=== PATIENT | male | born 1950 | race Caucasian/White ===

== ENCOUNTER 2017-06-29 11:42 | Inpatient (IN) | payer MEDICARE, BC ==
[~2017-06-29] VITALS: Ht 182.9 cm; Wt 97.3 kg
[~2017-06-29 11:42] MED LIST: ALLOPURINOL100 MG PO; ASPIRIN81 MG PO; ATORVASTATIN CA40 MG PO; CLOPIDOGREL75 MG PO; FISH OIL 1,2001 EACH PO; FUROSEMIDE40 MG PO; HYDROCHLOROTHIA25 MG PO; LANTUS 3ML100 UNITS/ SQ; LISINOPRIL10 MG PO; NORCO 5-325 TA1 EACH PO; OMEPRAZOLE40 MG PO; SOMA350 MG PO; VERAPAMIL ER120 MG PO; ZYRTEC10 MG PO
--- OUTSIDE RECORDS SUMMARY | 2017-06-29 11:46 | XMS REPORT ---
Author Author [facility] Address Unknown Phone Unavailable Care Team Providers Care Raised Printer Name Role Phone Unavailable Unavailable Problems This patient has no known problems. Allergies, Adverse Reactions, Alerts This patient has no known allergies or adverse reactions. Medications This patient has no known medications. Encounters Start Date/Time End Date/Time Encounter Type Admission Type Attending Clinicians Care Facility Care Department Encounter ID 2017-06-17 00:00:00 2017-06-25 00:00:00 [facility] [id number]
[2017-06-29] MEDS ORDERED: METHYLPREDNISOLONE SOD SUCC 125 MG/2ML VIAL IV STA (12:38)
[2017-06-29] MEDS ORDERED: ALBUTEROL/IPRATROPIUM 3 ML NEB NEB ONE (12:45)
--- NOTE | 2017-06-29 13:50 | Diagnostic Imaging Report ---
PROCEDURE: Frontal and lateral views of the chest. COMPARISON: None. INDICATIONS: COUGH, PNEUMONIA FINDINGS: Lines/tubes: None. Lungs: The lungs are mildly hypoinflated. Mild patchy density in the lung base posteriorly may reflect atelectasis versus developing pneumonia in the proper clinical setting. No focal consolidation. Pleura: There is no pleural effusion or pneumothorax. Heart and mediastinum: The cardiac silhouette is mildly enlarged. Median sternotomy wires. Bones: No acute bony abnormality. IMPRESSION: 1. Mild patchy density in the lung base posteriorly may reflect atelectasis versus developing pneumonia in the proper clinical setting. No focal consolidation. Rafa Foote M.D. Dictated by: Rafa Foote M.D. on 06/29/2017 at 14:00 Electronically approved by: Rafa Foote M.D. on 06/29/2017 at 14:00
[2017-06-29 16:22] LABS: BASOPHILS % 0.4 % (0.0-1.0); EOSINOPHILS # (AUTO) 0.1 (0.0-0.4); EOSINOPHILS % 0.9 % (0.0-6.0); HEMATOCRIT 42.1 % (38.2-49.6); HEMOGLOBIN 13.9 g/dL (14.0-18.0); LYMPHOCYTES # (AUTO) 0.7 (1.0-3.2); LYMPHOCYTES % 9.7 % (18.0-39.1); MEAN CORPUSCULAR HEMOGLOBIN 28.4 pg (28-32); MEAN CORPUSCULAR VOLUME 85.9 fL (81-99); MONOCYTES # (AUTO) 0.8 (0.2-0.8); MONOCYTES % 10.6 % (4.4-11.3); NEUTROPHILS # (AUTO) 5.9 (2.1-6.9); NEUTROPHILS % 78.1 % (38.7-80.0); PLATELET COUNT 204 x10e3/uL (140-360); RED CELL DISTRIBUTION WIDTH 12.9 % (11.7-14.4)
[2017-06-29 16:40] LABS: ALBUMIN 3.4 g/dL (3.5-5.0); ALBUMIN/GLOBULIN RATIO 0.7 (0.8-2.0); ANION GAP 15.1 mmol/L (8-16); CALCIUM 9.6 mg/dL (8.4-10.2); CREATININE, SERUM 1.41 mg/dL (0.72-1.25); POTASSIUM 4.1 mmol/L (3.5-5.1)
[2017-06-29] MEDS ORDERED: AZITHROMYCIN 500MG/SOD CHL 0.9% 250ML BAG IV SCH (19:15)
[2017-06-29] MEDS ORDERED: DEXTROSE 50% SYRINGE 50 ML IV PRN (19:15)
[2017-06-29] MEDS ORDERED: CEFTRIAXONE SOD 1 GM VIAL IV SCH (19:15)
[2017-06-29] MEDS ORDERED: AZITHROMYCIN 500MG/NS 250 ML 250 ML IV SCH (19:30)
[2017-06-29] MEDS ORDERED: IPRATROPIUM BROMIDE 0.02% 2.5 ML NEB NEB SCH (19:30)
[2017-06-29] MEDS ORDERED: AZITHROMYCIN 500MG/NS 250 ML 250 ML ONE (20:53)
[2017-06-29] MEDS ORDERED: METHYLPREDNISOLONE SOD SUCC 125 MG/2ML VIAL ONE (20:53)
[2017-06-29] MEDS ORDERED: CEFTRIAXONE SOD 1 GM VIAL ONE (20:53)
[2017-06-29] MEDS ORDERED: ATORVASTATIN CA20 MG PO (21:09)
[2017-06-29] MEDS ORDERED: LISINOPRIL-HCT1 EACH PO (21:10)
[2017-06-29] MEDS ORDERED: OMEPRAZOLE40 MG PO (21:11)
[2017-06-29] MEDS ORDERED: METOPROLOL TART25 MG PO (21:11)
[2017-06-29] MEDS ORDERED: CLOPIDOGREL75 MG PO (21:12)
[2017-06-29] MEDS ORDERED: VERAPAMIL HCL40 MG PO (21:12)
[2017-06-29] MEDS ORDERED: ACETAMINOPHEN 325 MG TAB PO PRN (21:30)
[2017-06-29] MEDS ORDERED: LOPERAMIDE HCL 2 MG CAP ONE (21:31)
[2017-06-29] MEDS ORDERED: METHYLPREDNISOLONE SOD SUCC 40 MG/ML VIAL IV SCH (22:00)
[2017-06-29] MEDS ORDERED: INSULIN REGULAR, HUMAN 100 UNIT/1 ML 3ML VIAL ONE (22:03)
[2017-06-29] MEDS ORDERED: SODIUM CHLORIDE 0.9% 1000ML 1,000 ML ONE (22:04)
[2017-06-29] MEDS: INSULIN REGULAR, HUMAN 100 UNIT/1 ML 3ML VIAL SQ SCH (22:05)
[2017-06-29] MEDS: SODIUM CHLORIDE 0.9% 1000ML 1,000 ML IV SCH (22:45)
[2017-06-29 22:46] VITALS: BP 142/65
[2017-06-29 22:47] VITALS: BP 142/65
[2017-06-29 22:52] VITALS: BP 142/65
[2017-06-30] VITALS (7 sets, daily range): BP systolic 116–189; BP diastolic 55–90
[2017-06-30] MEDS ORDERED: ALBUTEROL SULF 0.083% NEB SOLN 3 ML NEB ONE (00:34)
[2017-06-30] MEDS: ALBUTEROL SULF 0.083% NEB SOLN 3 ML NEB NEB SCH ×2 (00:35→19:30)
[2017-06-30] MEDS ORDERED: IPRATROPIUM BROMIDE 0.02% 2.5 ML NEB ONE (00:35)
[2017-06-30 00:37] LABS: BILIRUBIN,URINE NEGATIVE (NEGATIVE); KETONES,URINE TRACE (NEGATIVE); LEUKOCYTE ESTERASE ,URINE NEGATIVE (NEGATIVE); NITRITE,URINE NEGATIVE (NEGATIVE); PROTEIN,URINE DIPSTICK 3+ (NEGATIVE); URINE UROBILINOGEN 1 mg/dL (0.2 - 1)
[2017-06-30 00:38] LABS: CLARITY,URINE CLEAR (CLEAR); COLOR,URINE YELLOW (YELLOW)
[2017-06-30 00:49] LABS: BACTERIA,URINE FEW /HPF; EPITHELIAL CELLS,URINE RARE /LPF; RBC,URINE 0-5 /HPF (0-5); WBC,URINE (MAN) 0-5 /HPF (0-5)
[2017-06-30] MEDS: IPRATROPIUM BROMIDE 0.02% 2.5 ML NEB NEB SCH ×2 (01:00→19:30)
[2017-06-30 01:01] LABS: CREATINE KINASE MB 2.4 ng/mL (0.00-5.00)
[2017-06-30] MEDS: SODIUM CHLORIDE 0.9% 1000ML 1,000 ML IV SCH ×2 (05:01→14:09)
[2017-06-30] MEDS ORDERED: METHYLPREDNISOLONE SOD SUCC 40 MG/ML VIAL IV SCH (06:00)
[2017-06-30 06:47] LABS: BASOPHILS % 0.1 % (0.0-1.0); HEMOGLOBIN 12.2 g/dL (14.0-18.0); LYMPHOCYTES # (AUTO) 0.4 (1.0-3.2); LYMPHOCYTES % 5.6 % (18.0-39.1); MEAN CORPUSCULAR HEMOGLOBIN 28.4 pg (28-32); MEAN CORPUSCULAR VOLUME 86.2 fL (81-99); MONOCYTES # (AUTO) 0.1 (0.2-0.8); MONOCYTES % 1.2 % (4.4-11.3); NEUTROPHILS # (AUTO) 6.4 (2.1-6.9); PLATELET COUNT 175 x10e3/uL (140-360); RED BLOOD COUNT 4.29 x10e6/uL (4.3-5.7); RED CELL DISTRIBUTION WIDTH 12.7 % (11.7-14.4)
[2017-06-30 07:17] LABS: ANION GAP 16.8 mmol/L (8-16); CALCIUM 8.7 mg/dL (8.4-10.2); CREATININE, SERUM 1.59 mg/dL (0.72-1.25); POTASSIUM 4.8 mmol/L (3.5-5.1)
--- NOTE | 2017-06-30 07:20 | Diagnostic Imaging Report ---
PROCEDURE: CHEST SINGLE (PORTABLE) COMPARISON: Patients [facility], DX, CHEST 2 VIEWS, 06/29/2017, 13:13. INDICATIONS: SHORTNESS OF BREATH. PNEUMONIA FINDINGS: LUNGS: No edema. Scarring vs atelectasis in the left lower lateral lung field. PLEURA: No effusions or pneumothorax. HEART \T\ MEDIASTINUM: The heart is within normal size-limits. Sternotomy wire sutures and mediastinal clips. BONES \T\ SOFT TISSUES: No acute findings. Degenerative changes of the spine. CONCLUSION: No acute thoracic abnormality. Anthony Baptiste D.O. Dictated by: Anthony Baptiste D.O. on 06/30/2017 at 7:29 Electronically approved by: Anthony Baptiste D.O. on 06/30/2017 at 7:29
[2017-06-30 07:50] LABS: LYMPHOCYTES % (MANUAL) 4 % (19-48); MONOCYTES % (MANUAL) 1 % (3.4-9.0); NEUTROPHILS % (MANUAL) 95 % (40-74)
[2017-06-30 07:51] LABS: ANISOCYTOSIS SLIGHT; ELLIPTOCYTE, RBC SLIGHT; PLATELET ESTIMATE ADEQUATE; PLATELET MORPHOLOGY COMMENT FEW LARGE; RBC MORPHOLOGY COMMENT NORMAL
[2017-06-30 08:17] LABS: CREATINE KINASE MB 2.6 ng/mL (0.00-5.00)
[2017-06-30] MEDS ORDERED: NON-FORMULARY MEDICATION (Verapamil Hcl 40 MG) PO SCH (09:00)
[2017-06-30] MEDS: HYDROCHLOROTHIAZIDE 25 MG TAB PO SCH ×2 (10:26→17:18)
[2017-06-30] MEDS: LISINOPRIL 20 MG TAB PO SCH ×2 (10:26→17:19)
[2017-06-30] MEDS: METOPROLOL TARTRATE 25 MG TAB PO SCH ×2 (10:27→17:19)
[2017-06-30] MEDS: CLOPIDOGREL BISULFATE 75 MG TAB PO SCH (10:28)
[2017-06-30] MEDS: PANTOPRAZOLE SOD 40 MG TABEC PO SCH (10:28)
[2017-06-30] MEDS: VERAPAMIL HCL 80 MG TAB PO SCH ×2 (10:28→17:18)
[2017-06-30] MEDS: INSULIN DETEMIR 100 UNIT/ML PEN SQ SCH ×2 (10:34→17:29)
[2017-06-30] MEDS: INSULIN REGULAR, HUMAN 100 UNIT/1 ML 3ML VIAL SQ SCH ×4 (10:38→21:45)
--- NOTE | 2017-06-30 11:11 | History and Physical ---
A 67-year-old male comes in with a history of cough, congestion, dyspnea, which got worse in the last 4-5 days. Today, on admission the patient was really hypoxic and came in, and was found to have pneumonia, and admitted for pneumonia. PAST MEDICAL HISTORY: History of hypertension, history of congestive heart failure, history of coronary disease, history of chronic renal failure, history of uncontrolled diabetes mellitus, history of neuropathy, and severe peripheral arterial disease. MEDICATIONS 1. Atorvastatin 20 mg. 2. 75 mg. 3. Lisinopril 20 mg. 4. Metoprolol 25 mg twice a day. 5. Omeprazole 40 mg daily. 6. Verapamil 40 mg twice a day. ALLERGIES: NKDA. SOCIAL HISTORY: History of smoking in the past. Currently, he is not a smoker. Positive for some occasional drinking. No IV drug abuse as per the patient. PHYSICAL EXAMINATION GENERAL: The patient is alert and oriented times 3. VITAL SIGNS: Temperature is 98, pulse 65, respiratory rate 16, blood pressure 116/55, pulse ox 91% right now. HEENT: Normocephalic and atraumatic. Patient is edentulous and does not have dentures at this time. LUNGS: Positive for rhonchi bilaterally. ABDOMEN: Nontender and nondistended. HEART: S1 and S2 normal. Regular rate and rhythm. EXTREMITIES: Pedal pulses very poor. Trophic changes of diabetes seen. LABORATORY VALUES: Initially, white count was 7.6, hemoglobin 13.9 and hematocrit 42. Chemistry showed sodium of 139, BUN 26 and creatinine of 1.4. Creatinine kinase was 285. There is no troponin leak. BNP was 605. Imaging shows mild patchy density in the lung bases reflecting atelectasis versus pneumonia. ASSESSMENT 1. Pneumonia. 2. History of congestive heart failure with elevated BNP. 3. Coronary artery disease. 4. Uncontrolled diabetes with neuropathy and vasculopathy. PLAN: Continue his home medications. Put him on Lantus and start him back on his Plavix and statin. The patient is currently on Rocephin and azithromycin. Will continue the same. Will hold back on the methylprednisolone secondary to his uncontrolled diabetes mellitus. Breathing treatments every 6 hours. Further recommendations per clinical course. Will continue monitoring the patient. Job#: [id number] RI
--- NOTE | 2017-06-30 16:31 | Consultation ---
DATE OF CONSULTATION: June 30, 2017 REASON FOR CONSULTATION: Dyspnea. HISTORY OF PRESENT ILLNESS: This is a 67-year-old male with history of coronary artery disease, status post redo CABG, diabetes mellitus, hypertension, hyperlipidemia, and chronic kidney disease who presented with complaints of dyspnea. The patient reports that he has been short of breath for the last 5-6 months with dyspnea on exertion approximately 5-15 feet. However, he notes that his dyspnea has been worse these last 2-5 months. In addition, he has developed a cough in the last 2 weeks productive of green phlegm in the last week. He denies any chest pain, orthopnea, PND, fever or chills. On evaluation in the ER, chest x-ray was suggestive of pneumonia in the left lung base for which he was admitted for further evaluation. Cardiology is consulted for evaluation of his dyspnea, given his cardiac history. REVIEW OF SYSTEMS: Negative except as per HPI. PAST MEDICAL HISTORY: 1. Coronary artery disease, status post redo CABG. 2. Diabetes mellitus. 3. Hypertension. 4. Hyperlipidemia. 5. Chronic kidney disease. PAST SURGICAL HISTORY: 1. CABG. 2. Knee surgery. SOCIAL HISTORY: He quit smoking 40 years ago, but previously smoked 2 packs a day for 15 years. No alcohol or illicit drugs. FAMILY HISTORY: Pertinent for grandmother who of myocardial infarction. ALLERGIES: PLEASE SEE EMR . MEDICATIONS: Please see medication list. PHYSICAL EXAMINATION VITAL SIGNS: Temperature 97.9 degrees, pulse 85, respiratory rate 19, blood pressure 175/74, oxygen saturation 96% on room air. GENERAL: An obese gentleman in no acute distress. Well-nourished, well-developed. HEENT: Normocephalic, atraumatic. Pupils are equal. No scleral icterus. NECK: Supple. No thyromegaly or cervical lymphadenopathy. No carotid bruits. LUNGS: Clear to auscultation bilaterally. No wheezes or crackles. CARDIOVASCULAR: Normal rate, regular rhythm. No murmurs. Normal S1 and S2. ABDOMEN: Soft and nontender. EXTREMITIES: No edema. NEUROLOGIC: Nonfocal exam. WBC 6.84, hemoglobin 12.2, hematocrit 37, platelets 175,000. Sodium 134, potassium 4.8, chloride 105, CO2 of 17, BUN 31, creatinine 1.59, BNP 606. Troponin 0.019. EKG sinus rhythm with premature atrial complexes. Septal infarct, age undetermined. IMPRESSION 1. Phypx-dz-pkiodwq systolic heart failure. 2. Pneumonia. 3. Coronary artery disease, status post redo coronary artery bypass graft. 4. Hypertension. 5. Hyperlipidemia. 6. 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 7. Chronic kidney disease. RECOMMENDATIONS: Stop fluids. Start the patient on diuretics as blood pressure is stable. Continue home cardiac medications otherwise. Thank you for this consult. We will continue to follow. Job#: [id number]
[2017-06-30] MEDS: FUROSEMIDE INJ 10 MG/ML 4 ML VIAL IV SCH ×2 (17:18→21:37)
[2017-06-30] MEDS: METHYLPREDNISOLONE SOD SUCC 40 MG/ML VIAL IV SCH (17:32)
[2017-06-30] MEDS ORDERED: ATORVASTATIN 20 MG TAB PO SCH (21:00)
[2017-06-30] MEDS: CEFTRIAXONE SOD 1 GM VIAL IV SCH (21:40)
[2017-06-30] MEDS: AZITHROMYCIN 500MG/NS 250 ML 250 ML IV SCH (22:07)
[2017-07-01] MEDS: ALBUTEROL SULF 0.083% NEB SOLN 3 ML NEB NEB SCH ×7 (00:08→23:00)
[2017-07-01] MEDS: IPRATROPIUM BROMIDE 0.02% 2.5 ML NEB NEB SCH ×4 (00:08→19:00)
[2017-07-01 01:56] VITALS: BP 174/79
[2017-07-01] MEDS: METHYLPREDNISOLONE SOD SUCC 40 MG/ML VIAL IV SCH ×2 (05:29→18:00)
[2017-07-01 06:07] VITALS: BP 113/53
[2017-07-01 07:11] LABS: BASOPHILS % 0.1 % (0.0-1.0); HEMOGLOBIN 11.7 g/dL (14.0-18.0); LYMPHOCYTES # (AUTO) 0.8 (1.0-3.2); LYMPHOCYTES % 6.9 % (18.0-39.1); MEAN CORPUSCULAR HEMOGLOBIN 28.2 pg (28-32); MEAN CORPUSCULAR HGB CONC 32.5 g/dL (31-35); MEAN CORPUSCULAR VOLUME 86.7 fL (81-99); MONOCYTES # (AUTO) 0.7 (0.2-0.8); MONOCYTES % 6.5 % (4.4-11.3); NEUTROPHILS # (AUTO) 9.8 (2.1-6.9); NEUTROPHILS % 86.1 % (38.7-80.0); PLATELET COUNT 190 x10e3/uL (140-360); RED BLOOD COUNT 4.15 x10e6/uL (4.3-5.7); RED CELL DISTRIBUTION WIDTH 12.8 % (11.7-14.4)
[2017-07-01 07:27] LABS: ANION GAP 12.8 mmol/L (8-16); CALCIUM 8.9 mg/dL (8.4-10.2); CREATININE, SERUM 1.56 mg/dL (0.72-1.25); POTASSIUM 4.8 mmol/L (3.5-5.1)
[2017-07-01] MEDS: INSULIN REGULAR, HUMAN 100 UNIT/1 ML 3ML VIAL SQ SCH ×4 (08:00→20:59)
[2017-07-01 08:17] VITALS: BP 180/82
[2017-07-01] MEDS: CLOPIDOGREL BISULFATE 75 MG TAB PO SCH (09:00)
[2017-07-01] MEDS: PANTOPRAZOLE SOD 40 MG TABEC PO SCH (09:00)
[2017-07-01] MEDS: LISINOPRIL 20 MG TAB PO SCH ×2 (09:00→17:00)
[2017-07-01] MEDS: HYDROCHLOROTHIAZIDE 25 MG TAB PO SCH ×2 (09:00→17:00)
[2017-07-01] MEDS: FUROSEMIDE INJ 10 MG/ML 4 ML VIAL IV SCH ×3 (09:00→20:13)
[2017-07-01] MEDS: VERAPAMIL HCL 80 MG TAB PO SCH ×2 (09:00→17:00)
[2017-07-01] MEDS: METOPROLOL TARTRATE 25 MG TAB PO SCH ×2 (09:00→17:00)
[2017-07-01] MEDS: INSULIN DETEMIR 100 UNIT/ML PEN SQ SCH ×2 (09:00→17:00)
--- NOTE | 2017-07-01 10:21 | Progress Note ---
DATE: July 01, 2017 CARDIOLOGY PROGRESS NOTE SUBJECTIVE: Patient denies chest pain. He reports his shortness of breath is better, but he still cannot ambulate from his room to the nurse's station without stopping to catch his breath. In addition, he reports that he is having urinary hesitancy and weak stream. OBJECTIVE VITALS: Temperature 96.3 degrees, pulse 64, respiratory rate 20, blood pressure 180/82, oxygen saturation 98%. GENERAL: Obese gentleman in no acute distress. Awake and alert. LUNGS: Clear to auscultation bilaterally. No wheezes or crackles. CARDIOVASCULAR: Normal rate and regular rhythm. No murmur. Normal S1 and S2. ABDOMEN: Soft and nontender. EXTREMITIES: Trace edema. CARDIAC MEDICATIONS 1. Furosemide 40 mg IV t.i.d. 2. Atorvastatin 40 mg p.o. at bedtime. 3. Lisinopril 20 mg p.o. b.i.d. 4. Metoprolol tartrate 37.5 mg p.o. b.i.d. 5. Verapamil 40 mg p.o. b.i.d. 6. Hydrochlorothiazide 12.5 mg p.o. b.i.d. 7. Plavix 75 mg p.o. daily. LABS: WBC 11.39, hemoglobin 11.7, hematocrit 36, and platelets 190,000. Sodium 136, potassium 4.8, chloride 104, CO2 24, BUN 45, creatinine 1.56. IMPRESSION 1. Lyuwm-rs-naeiird systolic heart failure. 2. Pneumonia. 3. Coronary artery disease: Status post redo coronary artery bypass. 4. Hypertension. 5. Hyperlipidemia. 6. 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 7. Chronic kidney disease. RECOMMENDATIONS: Continue current cardiac medications, including intravenous diuresis. Monitor creatinine and replete electrolytes. Given the patient's complaints, will also start the patient on tamsulosin. Thank you for this consult. We will continue to follow. Job#: [id number] MARK
[2017-07-01] MEDS: DOXAZOSIN MESYLATE 2 MG TAB PO SCH (11:10)
[2017-07-01 11:35] VITALS: BP 180/78
[2017-07-01 16:01] VITALS: BP 190/92
[2017-07-01 20:00] VITALS: BP 189/81
[2017-07-01] MEDS: CEFTRIAXONE SOD 1 GM VIAL IV SCH (20:12)
[2017-07-01] MEDS ORDERED: ATORVASTATIN 40 MG TAB PO SCH (21:00)
[2017-07-01] MEDS: AZITHROMYCIN 500MG/NS 250 ML 250 ML IV SCH (21:08)
[2017-07-02] VITALS (8 sets, daily range): BP systolic 135–201; BP diastolic 61–90
[2017-07-02] MEDS: IPRATROPIUM BROMIDE 0.02% 2.5 ML NEB NEB SCH ×3 (01:40→13:00)
[2017-07-02] MEDS: ALBUTEROL SULF 0.083% NEB SOLN 3 ML NEB NEB SCH ×3 (02:53→13:00)
[2017-07-02] MEDS: METHYLPREDNISOLONE SOD SUCC 40 MG/ML VIAL IV SCH (05:45)
[2017-07-02 07:25] LABS: BASOPHILS % 0.1 % (0.0-1.0); HEMATOCRIT 35.4 % (38.2-49.6); HEMOGLOBIN 11.8 g/dL (14.0-18.0); LYMPHOCYTES # (AUTO) 1.1 (1.0-3.2); MEAN CORPUSCULAR HGB CONC 33.3 g/dL (31-35); MEAN CORPUSCULAR VOLUME 84.1 fL (81-99); MONOCYTES # (AUTO) 0.5 (0.2-0.8); MONOCYTES % 4.1 % (4.4-11.3); NEUTROPHILS # (AUTO) 10.1 (2.1-6.9); NEUTROPHILS % 86.4 % (38.7-80.0); PLATELET COUNT 206 x10e3/uL (140-360); RED BLOOD COUNT 4.21 x10e6/uL (4.3-5.7); RED CELL DISTRIBUTION WIDTH 12.7 % (11.7-14.4)
[2017-07-02 07:44] LABS: ANION GAP 14.3 mmol/L (8-16); CALCIUM 9.2 mg/dL (8.4-10.2); CREATININE, SERUM 1.34 mg/dL (0.72-1.25); POTASSIUM 4.3 mmol/L (3.5-5.1)
[2017-07-02] MEDS: FUROSEMIDE INJ 10 MG/ML 4 ML VIAL IV SCH (08:38)
[2017-07-02] MEDS: DOXAZOSIN MESYLATE 2 MG TAB PO SCH (08:57)
[2017-07-02] MEDS: VERAPAMIL HCL 80 MG TAB PO SCH (08:57)
[2017-07-02] MEDS: LISINOPRIL 20 MG TAB PO SCH (08:58)
[2017-07-02] MEDS: INSULIN DETEMIR 100 UNIT/ML PEN SQ SCH (08:58)
[2017-07-02] MEDS: HYDROCHLOROTHIAZIDE 25 MG TAB PO SCH (08:58)
[2017-07-02] MEDS: PANTOPRAZOLE SOD 40 MG TABEC PO SCH (08:58)
[2017-07-02] MEDS: CLOPIDOGREL BISULFATE 75 MG TAB PO SCH (08:58)
[2017-07-02] MEDS: METOPROLOL TARTRATE 25 MG TAB PO SCH (08:58)
[2017-07-02] MEDS: INSULIN REGULAR, HUMAN 100 UNIT/1 ML 3ML VIAL SQ SCH ×2 (08:59→12:41)
--- NOTE | 2017-07-02 10:48 | Diagnostic Imaging Report ---
PROCEDURE: X-RAY CHEST, TWO VIEWS COMPARISON: 06/30/2017. INDICATIONS: PNEUMONIA FINDINGS: Lungs remain well-inflated. Unchanged scar or atelectasis laterally within the left lung. No airspace consolidation, pleural effusion, or pneumothorax. Stable cardiomediastinal contour with postsurgical changes in the mediastinum. No overt pulmonary edema. No acute osseous abnormality. Multilevel degenerative disc changes of the thoracic and partially visualized lumbar spine. CONCLUSION: No acute cardiopulmonary abnormality. No consolidative pneumonia. Dictated by: Best López M.D. on 07/02/2017 at 10:57 Electronically approved by: Best López M.D. on 07/02/2017 at 10:57
--- NOTE | 2017-07-02 12:01 | Progress Note ---
DATE: July 02, 2017 CARDIOLOGY PROGRESS NOTE SUBJECTIVE: Patient denies chest pain. He reports he can walk further before having to stop due to shortness of breath now. OBJECTIVE VITALS: Temperature 96 degrees, pulse 64, respiratory rate 20, blood pressure 201/78, oxygen saturation 97%. GENERAL: Awake, alert, in no acute distress. LUNGS: Clear to auscultation bilaterally. No wheezes or crackles. CARDIOVASCULAR: Normal rate and regular rhythm. No murmur. Normal S1 and S2. ABDOMEN: Soft and nontender. EXTREMITIES: No edema. CARDIAC MEDICATIONS 1. Lisinopril 20 mg p.o. b.i.d. 2. Hydrochlorothiazide 12.5 mg p.o. b.i.d. 3. Metoprolol tartrate 37.5 mg p.o. b.i.d. 4. Plavix 75 mg p.o. daily. 5. Doxazosin 1 mg p.o. daily. 6. Verapamil 40 mg p.o. b.i.d. 7. Furosemide 40 mg IV t.i.d. 8. Atorvastatin 40 mg p.o. at bedtime. LABS: WBC 11.69, hemoglobin 11.8, hematocrit 35.4, and platelets 206,000. Sodium 138, potassium 4.3, chloride 103, CO2 25, BUN 48, creatinine 1.34. IMPRESSION 1. Irwuq-hg-uzgsvlz systolic heart failure. 2. Pneumonia. 3. Coronary artery disease, status post redo coronary artery bypass. 4. Hypertension. 5. Hyperlipidemia. 6. 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 7. Chronic kidney disease. RECOMMENDATIONS: Continue current cardiac medications, including intravenous diuresis while admitted. Monitor creatinine and replete electrolytes. The patient's blood pressure is not well controlled. Given the patient's urinary complaints, will increase doxazosin. In addition, we will discontinue metoprolol tartrate for carvedilol. The patient can be discharged home on 40 mg p.o. b.i.d. of Lasix. Thank you for this consult. We will continue to follow. Job#: [id number]
[2017-07-02] MEDS ORDERED: DOXAZOSIN MESYLATE 2 MG TAB PO NR (12:45)
[2017-07-02] MEDS ORDERED: CARVEDILOL 12.5 MG TAB PO NR (12:45)
== END 2017-07-02 14:35 | disposition home or self-care (01) | DRG 291 ==
LOC: ER 11:42 → UNDOADMOB 19:11 → ERHOLD 19:11 → IMCU 22:06 → OBSVTOIN 06-30 16:08 → MED/SURG3 06-30 18:06
PROVIDERS: ADMIT Family Medicine; ATTEND Family Medicine
DX: I13.0 Hypertensive heart and chronic kidney disease with heart failure and stage 1 through stage 4 chronic kidney disease, or unspecified chronic kidney disease (principal); I50.23 Acute on chronic systolic (congestive) heart failure; J18.9 Pneumonia, unspecified organism; E11.22 Type 2 diabetes mellitus with diabetic chronic kidney disease; J44.0 Chronic obstructive pulmonary disease with (acute) lower respiratory infection; N18.9 Chronic kidney disease, unspecified; E66.9 Obesity, unspecified; Z68.29 Body mass index [BMI] 29.0-29.9, adult; E11.40 Type 2 diabetes mellitus with diabetic neuropathy, unspecified; E11.51 Type 2 diabetes mellitus with diabetic peripheral angiopathy without gangrene; Z95.1 Presence of aortocoronary bypass graft; I25.10 Atherosclerotic heart disease of native coronary artery without angina pectoris; Z87.891 Personal history of nicotine dependence
CPT/HCPCS: 36415; 71045; 71046; 80048; 80053; 81001; 82550; 82553; 82948; 83880; 84484; 85025; 87040; 87070; 87086; 87205; 93005; 93306; 94640; 99284; G0378; J0456; J0696; J1940; J2920; J2930; J7030

== ENCOUNTER → 2018-02-09 | Outpatient (CLI) | payer MEDICARE, BC ==
[~2018-02-09] MED LIST changes: +AMLODIPINE BESYL5 MG PO; +ATORVASTATIN CA20 MG PO; +ATORVASTATIN CA80 MG PO; +DOXAZOSIN MESYLA2 MG PO; +HYDRALAZINE HCL25 MG PO; +LEVAQUIN500 MG PO; +LISINOPRIL-HCT1 EACH PO; +METOPROLOL SUCC25 MG PO; +METOPROLOL TART25 MG PO; +NOVOLIN N100 UNIT/1; +NOVOLIN N100 UNIT/1 SC; +NOVOLOG MI100 UNIT/1 SQ; +VERAPAMIL HCL40 MG PO
--- NOTE | 2018-02-10 07:50 | Diagnostic Imaging Report ---
Exam: Lumbar spine MRI without IV contrast History: Low back pain with radiculopathy symptoms. Comparison studies: Included lumbar spine from abdomen pelvis CT of 01/20/2018. Technique: Sagittal and axial T2 , sagittal T1 and IR, axial spin density oblique, coronal T2. Intravenous contrast: None Findings: Number of lumbar vertebral bodies: 5. Alignment: Normal lumbar lordosis. Mild convex right lumbar curvature. Approximately 7 mm grade 1 degenerative anterolisthesis of L4 and L5. Minimal degenerative retrolisthesis of L1 on L2, L2 on L3, L3 on L4. Soft tissues: No T2 hyperintense inflammatory changes. Paraspinal muscles: No signal abnormalities. Well-preserved. No atrophic changes Lower thoracic cord: Normal in signal and morphology. The tip of the conus is at L1-2 . Cauda equina: No masses. No arachnoiditis. Vertebrae: No compression fractures, infection or neoplasm. Degenerative changes: Loss of T2/STIR disc signal from T10 to S1. Multilevel anterior marginal osteophytes. Multilevel contiguous bridging osteophytes within the lower thoracic spine which are better visualized on the previous abdomen pelvis CT may indicate a component of diffuse radiographic skeletal hyperostosis (DISH). T10-T11 and T11-T12: Patent canal and foramina. T12-L1: Moderate loss of disc height. Asymmetric right disc bulge with mild canal stenosis and mild right foraminal stenosis. Patent left foramen. L1-L2: Mild loss of disc height. Minimal retrolisthesis of L1 on L2 with associated uncovered disc and bilateral foraminal disc osteophyte complexes, thickened ligamentum flavum and facet arthrosis with mild canal stenosis and moderate bilateral foraminal stenosis. L2-L3: Moderate loss of disc height. Minimal retrolisthesis of L2 on L3 with associated uncovered disc/disc bulge and left foraminal disc osteophyte complex, thickened ligamentum flavum and bilateral facet arthrosis with mild canal stenosis, moderate to severe left foraminal stenosis and moderate right foraminal stenosis. L3-L4: Mild to moderate loss of disc height with mild edema along the inferior endplate.. Minimal retrolisthesis of L3 on L4 with associated uncovered disc/disc osteophyte complex, thickened ligamentum flavum and bilateral facet arthrosis with moderate bilateral foraminal stenosis (right greater than left). L4-L5: Mild to moderate loss of disc. Grade 1 anterolisthesis of L3 on L4 with associated uncovered disc/disc bulge, thickened ligamentum flavum and moderate bilateral facet arthrosis with mild canal stenosis and moderate bilateral foraminal stenosis. There is narrowing of the bilateral subarticular recess ease and mild T2 hyperintense changes at the facets related to synovitis. L5-S1: Mild loss of disc height. Asymmetric right disc osteophyte complex and facet arthrosis with severe right foraminal stenosis. No significant canal or left foraminal stenosis. Additional findings: Unchanged 3.0 cm left peripelvic renal cyst. Additional smaller T2 hyperintense lesions in the left kidney may be cysts but are too small to actually characterize by ultrasound. IMPRESSION: 1. Moderate multilevel disc degeneration. 2. Mild multilevel degenerative foraminal stenosis, greatest at L4-L5 where there is narrowing of the subarticular recesses and Grade 1 degenerative anterolisthesis of L4 on L5. 3. Multilevel degenerative foraminal stenosis; moderate bilaterally at L1-L2, moderate-severe left and moderate right L2-L3, moderate bilaterally at L4-L5 and severe right at L5-S1. 4. Multilevel lumbar facet arthrosis, greatest at L4-5. Signed by: Dr. Best Munoz M.D. on 02/10/2018 7:46 AM
== END ==
LOC: MRI 12:55
PROVIDERS: ATTEND Family Medicine
DX: M54.5 Low back pain (principal); M54.16 Radiculopathy, lumbar region
CPT/HCPCS: 72148

== ENCOUNTER 2022-09-03 13:13 | Inpatient (IN) | payer MEDICARE, BC ==
[~2022-09-03] VITALS: Ht 182.9 cm; Wt 82.6 kg
[~2022-09-03 13:13] MED LIST changes: +FINASTERIDE1 MG PO; +FLOMAX0.4 MG PO; +METHOCARBAMOL1000 MG PO; +NIFEDIPINE ER30 M1 PO; +NOVOLOG MI100 UNIT/1 SC
[2022-09-03 14:24] LABS: BASOPHILS # (AUTO) 0.1 (0.0-0.1); BASOPHILS % 0.8 % (0.0-1.0); EOSINOPHILS # (AUTO) 0.2 (0.0-0.4); EOSINOPHILS % 3.5 % (0.0-6.0); HEMATOCRIT 36.2 % (38.2-49.6); HEMOGLOBIN 11.6 g/dL (14.0-18.0); LYMPHOCYTES # (AUTO) 1.1 (1.0-3.2); LYMPHOCYTES % 18.2 % (18.0-39.1); MEAN CORPUSCULAR HEMOGLOBIN 27.2 pg (28-32); MONOCYTES # (AUTO) 0.6 (0.2-0.8); MONOCYTES % 8.8 % (4.4-11.3); NEUTROPHILS # (AUTO) 4.3 (2.1-6.9); NEUTROPHILS % 68.1 % (38.7-80.0); PLATELET COUNT 501 x10e3/uL (140-360); RED BLOOD COUNT 4.26 x10e6/uL (4.3-5.7)
[2022-09-03 14:44] LABS: ALBUMIN 1.9 g/dL (3.5-5.0); ALBUMIN/GLOBULIN RATIO 0.4 (0.8-2.0); ALKALINE PHOSPHATASE 125 IU/L (40-150); ANION GAP 14.2 mmol/L (8-16); BLOOD UREA NITROGEN 18 mg/dL (7-26); BUN/CREATININE RATIO 7 (6-25); CALCIUM 9.5 mg/dL (8.4-10.2); CARBON DIOXIDE 29 mmol/L (22-29); CHLORIDE 100 mmol/L (98-107); CREATININE, SERUM 2.74 mg/dL (0.72-1.25); GLUCOSE 137 mg/dL (74-118); POTASSIUM 3.2 mmol/L (3.5-5.1); SODIUM 140 mmol/L (136-145)
[2022-09-03 14:45] LABS: ALANINE AMINOTRANSFERASE < 6 IU/L (0-55)
[2022-09-03] MEDS ORDERED: SODIUM CHLORIDE FLUSH 10 ML SYR INJ PRN (15:00)
[2022-09-03] MEDS ORDERED: ONDANSETRON HCL INJ 2MG/ML 2ML 2 MG/ML VIAL IV PRN (15:00)
[2022-09-03] MEDS ORDERED: Morphine 2mg Syringe 2 MG/ML SYR IV PRN (15:00)
[2022-09-03 15:21] LABS: CREATINE KINASE MB 1.5 ng/mL (0-5.0)
[2022-09-03 17:43] LABS: CLARITY,URINE SL CLOUDY (CLEAR); COLOR,URINE RED (YELLOW); KETONES,URINE NEGATIVE (NEGATIVE); LEUKOCYTE ESTERASE ,URINE LARGE (NEGATIVE); NITRITE,URINE NEGATIVE (NEGATIVE); PROTEIN,URINE DIPSTICK >=300 (NEGATIVE); URINE UROBILINOGEN 0.2 mg/dL (0.2 - 1)
[2022-09-03 17:55] LABS: BACTERIA,URINE MODERATE /HPF; RBC,URINE 21-50 /HPF (0-5)
[2022-09-03 18:05] VITALS: BP 143/66
[2022-09-03 18:21] VITALS: BP 143/66
[2022-09-03 20:00] VITALS: BP 99/58
[2022-09-03] MEDS ORDERED: GABAPENTIN300 MG PO (23:16)
[2022-09-03] MEDS ORDERED: ENTRESTO 49 MG1 EACH PO ×2 (23:16→23:22)
[2022-09-03] MEDS ORDERED: FUROSEMIDE20 MG PO (23:16)
[2022-09-03] MEDS ORDERED: NIFEDIPINE ER30 MG PO (23:16)
[2022-09-04] VITALS: BP 101/53
[2022-09-04 00:26] LABS: CREATINE KINASE MB 0.9 ng/mL (0-5.0)
[2022-09-04 04:00] VITALS: BP 115/75
[2022-09-04 05:28] LABS: BASOPHILS # (AUTO) 0.1 (0.0-0.1); BASOPHILS % 0.8 % (0.0-1.0); EOSINOPHILS # (AUTO) 0.3 (0.0-0.4); EOSINOPHILS % 4.2 % (0.0-6.0); HEMATOCRIT 29.1 % (38.2-49.6); HEMOGLOBIN 9.2 g/dL (14.0-18.0); LYMPHOCYTES # (AUTO) 1.2 (1.0-3.2); LYMPHOCYTES % 18.6 % (18.0-39.1); MEAN CORPUSCULAR HEMOGLOBIN 27.4 pg (28-32); MEAN CORPUSCULAR HGB CONC 31.6 g/dL (31-35); MEAN CORPUSCULAR VOLUME 86.6 fL (81-99); MONOCYTES # (AUTO) 0.7 (0.2-0.8); MONOCYTES % 10.8 % (4.4-11.3); NEUTROPHILS # (AUTO) 4.2 (2.1-6.9); PLATELET COUNT 432 x10e3/uL (140-360); RED BLOOD COUNT 3.36 x10e6/uL (4.3-5.7); RED CELL DISTRIBUTION WIDTH 17.1 % (11.7-14.4)
[2022-09-04 06:01] LABS: CREATINE KINASE 19 IU/L (30-200)
[2022-09-04 06:03] LABS: ALBUMIN 1.6 g/dL (3.5-5.0); ALBUMIN/GLOBULIN RATIO 0.4 (0.8-2.0); ALKALINE PHOSPHATASE 106 IU/L (40-150); ANION GAP 10.1 mmol/L (8-16); BLOOD UREA NITROGEN 22 mg/dL (7-26); BUN/CREATININE RATIO 8 (6-25); CALCIUM 9.1 mg/dL (8.4-10.2); CARBON DIOXIDE 28 mmol/L (22-29); CHLORIDE 104 mmol/L (98-107); CREATININE, SERUM 2.81 mg/dL (0.72-1.25); GLUCOSE 111 mg/dL (74-118); POTASSIUM 3.1 mmol/L (3.5-5.1); SODIUM 139 mmol/L (136-145)
[2022-09-04 06:27] LABS: ALANINE AMINOTRANSFERASE < 6 IU/L (0-55)
[2022-09-04 08:43] VITALS: BP 138/62
[2022-09-04 08:45] VITALS: BP 138/62
[2022-09-04 08:48] VITALS: BP 138/62
[2022-09-04] MEDS ORDERED: POTASSIUM CHLORIDE 20 MEQ TAB CR PO ONE (11:30)
[2022-09-04] MEDS: Clindamycin INJ 300 MG/50 ML 50 ML IV SCH ×2 (13:01→21:53)
[2022-09-04] MEDS: FUROSEMIDE 40 MG TAB PO SCH (16:14)
[2022-09-04] MEDS: BALSAM PERU/CASTOR OIL 60 GM OINT...G. TP SCH (17:28)
[2022-09-04] MEDS ORDERED: GABAPENTIN 300 MG CAP PO PRN (18:15)
[2022-09-04 20:00] VITALS: BP 125/53
[2022-09-04] MEDS: TAMSULOSIN HCL 0.4 MG CAP PO SCH (21:52)
[2022-09-04] MEDS: ATORVASTATIN 40 MG TAB PO SCH (21:53)
[2022-09-05] VITALS (10 sets, daily range): BP systolic 113–149; BP diastolic 56–62
[2022-09-05] MEDS: Clindamycin INJ 300 MG/50 ML 50 ML IV SCH ×3 (04:59→22:08)
[2022-09-05] MEDS: FUROSEMIDE 40 MG TAB PO SCH ×2 (04:59→18:11)
[2022-09-05 06:42] LABS: BASOPHILS # (AUTO) 0.1 (0.0-0.1); BASOPHILS % 0.9 % (0.0-1.0); EOSINOPHILS # (AUTO) 0.3 (0.0-0.4); EOSINOPHILS % 5.9 % (0.0-6.0); HEMATOCRIT 32.1 % (38.2-49.6); HEMOGLOBIN 9.8 g/dL (14.0-18.0); LYMPHOCYTES # (AUTO) 1.2 (1.0-3.2); LYMPHOCYTES % 21.5 % (18.0-39.1); MEAN CORPUSCULAR HEMOGLOBIN 26.9 pg (28-32); MEAN CORPUSCULAR HGB CONC 30.5 g/dL (31-35); MEAN CORPUSCULAR VOLUME 88.2 fL (81-99); MONOCYTES # (AUTO) 0.9 (0.2-0.8); MONOCYTES % 15.2 % (4.4-11.3); NEUTROPHILS # (AUTO) 3.1 (2.1-6.9); PLATELET COUNT 403 x10e3/uL (140-360); RED BLOOD COUNT 3.64 x10e6/uL (4.3-5.7); RED CELL DISTRIBUTION WIDTH 17.3 % (11.7-14.4)
[2022-09-05 07:03] LABS: ALBUMIN 1.7 g/dL (3.5-5.0); ALBUMIN/GLOBULIN RATIO 0.4 (0.8-2.0); ANION GAP 12.7 mmol/L (8-16); CALCIUM 9.2 mg/dL (8.4-10.2); CREATININE, SERUM 2.98 mg/dL (0.72-1.25); POTASSIUM 3.7 mmol/L (3.5-5.1)
[2022-09-05] MEDS: ALLOPURINOL 100 MG TAB PO SCH (08:50)
[2022-09-05] MEDS: FINASTERIDE 5 MG TAB PO SCH (08:50)
[2022-09-05] MEDS: METOPROLOL SUCCINATE 25 MG TAB XL PO SCH (08:50)
[2022-09-05] MEDS: CLOPIDOGREL BISULFATE 75 MG TAB PO SCH (08:50)
[2022-09-05] MEDS: SACUBITRIL/VALSARTAN 1 EACH TABLET PO SCH (09:00)
[2022-09-05] MEDS ORDERED: FUROSEMIDE 20 MG TAB PO SCH (09:00)
[2022-09-05] MEDS: BALSAM PERU/CASTOR OIL 60 GM OINT...G. TP SCH (10:28)
[2022-09-05] MEDS: TAMSULOSIN HCL 0.4 MG CAP PO SCH (22:08)
[2022-09-05] MEDS: ATORVASTATIN 40 MG TAB PO SCH (22:08)
[2022-09-06] MEDS: Clindamycin INJ 300 MG/50 ML 50 ML IV SCH ×3 (06:01→21:31)
[2022-09-06] MEDS: FUROSEMIDE 40 MG TAB PO SCH ×2 (06:01→18:17)
[2022-09-06 08:00] VITALS: BP 111/56
[2022-09-06] MEDS: CLOPIDOGREL BISULFATE 75 MG TAB PO SCH (08:59)
[2022-09-06] MEDS: METOPROLOL SUCCINATE 25 MG TAB XL PO SCH (08:59)
[2022-09-06] MEDS: ALLOPURINOL 100 MG TAB PO SCH (08:59)
[2022-09-06] MEDS: SACUBITRIL/VALSARTAN 1 EACH TABLET PO SCH (08:59)
[2022-09-06] MEDS: FINASTERIDE 5 MG TAB PO SCH (09:03)
[2022-09-06] MEDS: BALSAM PERU/CASTOR OIL 60 GM OINT...G. TP SCH (09:47)
[2022-09-06 12:06] VITALS: BP 123/56
[2022-09-06 17:03] VITALS: BP 117/57
[2022-09-06 19:39] VITALS: BP 117/57
[2022-09-06 20:03] VITALS: BP 149/61
[2022-09-06] MEDS: TAMSULOSIN HCL 0.4 MG CAP PO SCH (20:13)
[2022-09-06] MEDS: ATORVASTATIN 40 MG TAB PO SCH (20:13)
[2022-09-07] VITALS (7 sets, daily range): BP systolic 106–150; BP diastolic 60–96
[2022-09-07] MEDS: FUROSEMIDE 40 MG TAB PO SCH ×2 (06:17→17:15)
[2022-09-07] MEDS: Clindamycin INJ 300 MG/50 ML 50 ML IV SCH ×4 (06:17→22:00)
[2022-09-07] MEDS: METOPROLOL SUCCINATE 25 MG TAB XL PO SCH (09:00)
[2022-09-07] MEDS: CLOPIDOGREL BISULFATE 75 MG TAB PO SCH (09:17)
[2022-09-07] MEDS: FINASTERIDE 5 MG TAB PO SCH (09:17)
[2022-09-07] MEDS: SACUBITRIL/VALSARTAN 1 EACH TABLET PO SCH (09:17)
[2022-09-07] MEDS: ALLOPURINOL 100 MG TAB PO SCH (09:17)
[2022-09-07] MEDS: BALSAM PERU/CASTOR OIL 60 GM OINT...G. TP SCH (09:18)
[2022-09-07] MEDS ORDERED: ONDANSETRON HCL 4 MG ORAL DISINTEGRATING TAB PO PRN (11:45)
[2022-09-07] MEDS ORDERED: PHENYLEPH/SHARK OIL/MO/PETROL 30 GM OINT RC PRN (20:00)
[2022-09-07] MEDS: TAMSULOSIN HCL 0.4 MG CAP PO SCH (21:35)
[2022-09-07] MEDS: ATORVASTATIN 40 MG TAB PO SCH (21:36)
[2022-09-08] MEDS: Clindamycin INJ 300 MG/50 ML 50 ML IV SCH (05:55)
[2022-09-08] MEDS: FUROSEMIDE 40 MG TAB PO SCH (05:55)
[2022-09-08 06:03] VITALS: BP 100/47
[2022-09-08 07:47] VITALS: BP 114/59
[2022-09-08 08:30] VITALS: BP 144/59
[2022-09-08] MEDS: METOPROLOL SUCCINATE 25 MG TAB XL PO SCH (09:00)
[2022-09-08] MEDS: SACUBITRIL/VALSARTAN 1 EACH TABLET PO SCH (09:00)
[2022-09-08] MEDS: CLOPIDOGREL BISULFATE 75 MG TAB PO SCH (09:27)
[2022-09-08] MEDS: ALLOPURINOL 100 MG TAB PO SCH (09:27)
[2022-09-08] MEDS: FINASTERIDE 5 MG TAB PO SCH (09:27)
[2022-09-08] MEDS: BALSAM PERU/CASTOR OIL 60 GM OINT...G. TP SCH (09:28)
[2022-09-08 11:40] VITALS: BP 99/50
== END 2022-09-08 13:25 | DRG 699 ==
LOC: ER 13:29 → ERHOLD 14:49 → MED/SURG 17:30
PROVIDERS: ADMIT Family Medicine; ATTEND Family Medicine
DX: E11.22 Type 2 diabetes mellitus with diabetic chronic kidney disease (principal); I12.0 Hypertensive chronic kidney disease with stage 5 chronic kidney disease or end stage renal disease; N18.6 End stage renal disease; Z99.2 Dependence on renal dialysis; M19.91 Primary osteoarthritis, unspecified site; E11.42 Type 2 diabetes mellitus with diabetic polyneuropathy; J44.9 Chronic obstructive pulmonary disease, unspecified
CPT/HCPCS: 0223U; 36415; 36589; 71045; 74470; 80053; 81001; 82550; 82553; 82948; 84484; 85025; 87086; 87186; 93005; 94799; 99252; 99285; J2270

== ENCOUNTER 2022-09-09 19:10 | Emergency (ER) | payer MEDICARE, BC ==
[~2022-09-09] VITALS: Ht 365.8 cm; Wt 82.6 kg
[~2022-09-09 19:10] MED LIST changes: +ENTRESTO 49 MG1 EACH PO; +FUROSEMIDE20 MG PO; +GABAPENTIN300 MG PO; +NIFEDIPINE ER30 MG PO
[2022-09-09 19:58] LABS: BASOPHILS # (AUTO) 0.1 (0.0-0.1); BASOPHILS % 0.7 % (0.0-1.0); EOSINOPHILS # (AUTO) 0.2 (0.0-0.4); EOSINOPHILS % 2.3 % (0.0-6.0); HEMATOCRIT 33.9 % (38.2-49.6); HEMOGLOBIN 11.1 g/dL (14.0-18.0); LYMPHOCYTES # (AUTO) 1.2 (1.0-3.2); LYMPHOCYTES % 13.9 % (18.0-39.1); MEAN CORPUSCULAR HEMOGLOBIN 27.1 pg (28-32); MEAN CORPUSCULAR HGB CONC 32.7 g/dL (31-35); MEAN CORPUSCULAR VOLUME 82.7 fL (81-99); MONOCYTES # (AUTO) 0.6 (0.2-0.8); MONOCYTES % 7.4 % (4.4-11.3); NEUTROPHILS # (AUTO) 6.5 (2.1-6.9); NEUTROPHILS % 75.1 % (38.7-80.0); PLATELET COUNT 477 x10e3/uL (140-360); RED CELL DISTRIBUTION WIDTH 17.1 % (11.7-14.4)
[2022-09-09 20:18] LABS: ALBUMIN 2.4 g/dL (3.5-5.0); ALBUMIN/GLOBULIN RATIO 0.5 (0.8-2.0); ANION GAP 16.8 mmol/L (8-16); CALCIUM 9.9 mg/dL (8.4-10.2); CREATININE, SERUM 3.75 mg/dL (0.72-1.25); POTASSIUM 4.8 mmol/L (3.5-5.1)
[2022-09-09 20:38] LABS: CLARITY,URINE TURBID (CLEAR); COLOR,URINE RED (YELLOW); KETONES,URINE TRACE (NEGATIVE); LEUKOCYTE ESTERASE ,URINE LARGE (NEGATIVE); NITRITE,URINE POSITIVE (NEGATIVE); PROTEIN,URINE DIPSTICK >=300 (NEGATIVE)
[2022-09-09 20:39] LABS: URINE UROBILINOGEN 1 mg/dL (0.2 - 1)
[2022-09-09 20:57] LABS: BACTERIA,URINE FEW /HPF; RBC,URINE >50 /HPF (0-5)
[2022-09-09 22:16] VITALS: BP 145/80
== END 2022-09-09 22:13 ==
LOC: ER 19:17
DX: R31.9 Hematuria, unspecified (principal); E11.22 Type 2 diabetes mellitus with diabetic chronic kidney disease; N18.6 End stage renal disease; I25.10 Atherosclerotic heart disease of native coronary artery without angina pectoris; M10.9 Gout, unspecified; I25.2 Old myocardial infarction; Z95.1 Presence of aortocoronary bypass graft; Z95.5 Presence of coronary angioplasty implant and graft; Z95.810 Presence of automatic (implantable) cardiac defibrillator; R94.31 Abnormal electrocardiogram [ECG] [EKG]
CPT/HCPCS: 36415; 80053; 81001; 82550; 82553; 84484; 85025; 87086; 87186; 93005; 99284

== ENCOUNTER → 2022-10-07 | Outpatient (CLI) | payer MEDICARE, BC | LOC: RAD 11:20 | PROVIDERS: ATTEND Family Medicine Adult Medicine | DX: Z01.818 Encounter for other preprocedural examination (principal); E11.621 Type 2 diabetes mellitus with foot ulcer; L89.520 Pressure ulcer of left ankle, unstageable; L89.610 Pressure ulcer of right heel, unstageable; L97.428 Non-pressure chronic ulcer of left heel and midfoot with other specified severity; L97.528 Non-pressure chronic ulcer of other part of left foot with other specified severity; R21 Rash and other nonspecific skin eruption | CPT/HCPCS: 71046; 93005; 93306 ==

== ENCOUNTER 2022-10-08 12:37 | Outpatient (RCR) | payer MEDICARE, BC | END 2022-10-21 | LOC: WCC 12:37 | PROVIDERS: ATTEND Family Medicine Adult Medicine | DX: L89.610 Pressure ulcer of right heel, unstageable (principal); L89.520 Pressure ulcer of left ankle, unstageable; L89.896 Pressure-induced deep tissue damage of other site; E11.621 Type 2 diabetes mellitus with foot ulcer; L97.528 Non-pressure chronic ulcer of other part of left foot with other specified severity; L97.428 Non-pressure chronic ulcer of left heel and midfoot with other specified severity; L97.518 Non-pressure chronic ulcer of other part of right foot with other specified severity; L97.419 Non-pressure chronic ulcer of right heel and midfoot with unspecified severity; L97.418 Non-pressure chronic ulcer of right heel and midfoot with other specified severity; R21 Rash and other nonspecific skin eruption ==

== ENCOUNTER 2024-02-07 11:39 | Inpatient (IN) | payer MEDICARE, BC ==
[~2024-02-07] VITALS: Ht 193 cm; Wt 82.6 kg
[~2024-02-07 11:39] MED LIST changes: +CIPRO250 MG PO; +COREG6.25 MG PO; +PLAVIX75 MG PO
[2024-02-07 11:42] VITALS: TEMP 97.4
[2024-02-07 12:09] LABS: BASOPHILS # (AUTO) 0.1 (0.0-0.1); EOSINOPHILS # (AUTO) 0.2 (0.0-0.4); EOSINOPHILS % 3.6 % (0.0-6.0); HEMATOCRIT 37.5 % (38.2-49.6); HEMOGLOBIN 11.9 g/dL (14.0-18.0); LYMPHOCYTES # (AUTO) 0.9 (1.0-3.2); LYMPHOCYTES % 15.1 % (18.0-39.1); MEAN CORPUSCULAR HEMOGLOBIN 30.6 pg (28-32); MEAN CORPUSCULAR HGB CONC 31.7 g/dL (31-35); MEAN CORPUSCULAR VOLUME 96.4 fL (81-99); MONOCYTES # (AUTO) 0.5 (0.2-0.8); MONOCYTES % 8.6 % (4.4-11.3); NEUTROPHILS # (AUTO) 4.2 (2.1-6.9); NEUTROPHILS % 71.5 % (38.7-80.0); PLATELET COUNT 193 x10e3/uL (140-360); RED BLOOD COUNT 3.89 x10e6/uL (4.3-5.7); RED CELL DISTRIBUTION WIDTH 15.6 % (11.7-14.4); WHITE BLOOD COUNT 5.84 x10e3/uL (4.8-10.8)
[2024-02-07 12:20] LABS: ANION GAP 17.4 mmol/L (8-16); CALCIUM 9.9 mg/dL (8.4-10.2); CREATININE, SERUM 3.24 mg/dL (0.72-1.25); POTASSIUM 4.4 mmol/L (3.5-5.1)
[2024-02-07] MEDS: Vancomycin IV 500 MG in SODIUM CHLORIDE 0.9% 100 ML IV STA (13:01)
[2024-02-07] MEDS: ONDANSETRON HCL INJ 2MG/ML 2ML 2 MG/ML VIAL IV PRN (13:02)
[2024-02-07] MEDS: Morphine 4mg INJECTION 4 MG/ML INJ IV PRN (13:02)
[2024-02-07] MEDS: SODIUM CHLORIDE 0.9% 1000ML 1,000 ML IV SCH (13:03)
[2024-02-07 14:39] VITALS: PULSE 60; RESP 16; O2SAT 93
[2024-02-07 16:01] VITALS: PULSE 65; RESP 17
[2024-02-07 17:22] VITALS: PULSE 72; RESP 16; O2SAT 94
[2024-02-07 19:55] VITALS: PULSE 61; RESP 16; O2SAT 100
[2024-02-07 20:00] VITALS: BP 138/66; PULSE 61; RESP 21; TEMP 97.7; O2SAT 100
[2024-02-07] MEDS: ATORVASTATIN 40 MG TAB PO SCH (20:56)
[2024-02-07] MEDS ORDERED: COREG6.25 MG PO (22:22)
[2024-02-07] MEDS ORDERED: HYDROXYZINE HCL25 MG PO (22:23)
[2024-02-07] MEDS ORDERED: ACIDOPHILUS1 EAC1 PO (22:25)
[2024-02-08] VITALS (8 sets, daily range): BP systolic 110–138; BP diastolic 49–74; PULSE 59–64; RESP 17–21; TEMP 97.2–98; O2SAT 99–100
[2024-02-08 05:31] LABS: BASOPHILS % 0.9 % (0.0-1.0); EOSINOPHILS # (AUTO) 0.3 (0.0-0.4); EOSINOPHILS % 6.9 % (0.0-6.0); HEMOGLOBIN 10.4 g/dL (14.0-18.0); LYMPHOCYTES # (AUTO) 0.8 (1.0-3.2); LYMPHOCYTES % 17.4 % (18.0-39.1); MEAN CORPUSCULAR HEMOGLOBIN 30.7 pg (28-32); MEAN CORPUSCULAR HGB CONC 31.5 g/dL (31-35); MEAN CORPUSCULAR VOLUME 97.3 fL (81-99); MONOCYTES # (AUTO) 0.6 (0.2-0.8); MONOCYTES % 12.5 % (4.4-11.3); NEUTROPHILS # (AUTO) 2.8 (2.1-6.9); NEUTROPHILS % 62.1 % (38.7-80.0); PLATELET COUNT 172 x10e3/uL (140-360); RED BLOOD COUNT 3.39 x10e6/uL (4.3-5.7); RED CELL DISTRIBUTION WIDTH 15.6 % (11.7-14.4); WHITE BLOOD COUNT 4.48 x10e3/uL (4.8-10.8)
[2024-02-08 05:48] LABS: ANION GAP 12.7 mmol/L (8-16); CALCIUM 9.3 mg/dL (8.4-10.2); CREATININE, SERUM 3.47 mg/dL (0.72-1.25); POTASSIUM 4.7 mmol/L (3.5-5.1)
[2024-02-08] MEDS: TAMSULOSIN HCL 0.4 MG CAP PO SCH (08:25)
[2024-02-08] MEDS: PANTOPRAZOLE SOD 40 MG TABEC PO SCH (08:25)
[2024-02-08] MEDS: CARVEDILOL 3.125 MG TAB PO SCH (09:00)
[2024-02-09 06:41] LABS: ANION GAP 13.7 mmol/L (8-16); CALCIUM 9.4 mg/dL (8.4-10.2); CREATININE, SERUM 2.49 mg/dL (0.72-1.25); POTASSIUM 4.7 mmol/L (3.5-5.1)
[2024-02-09 08:00] VITALS: BP 115/69; PULSE 60; RESP 18; TEMP 97.9; O2SAT 100
[2024-02-09 08:25] VITALS: BP 103/59; PULSE 59; RESP 17; TEMP 97.7; O2SAT 98
[2024-02-09 12:53] VITALS: BP 113/58; PULSE 61; RESP 16; TEMP 97.5; O2SAT 100
[2024-02-09] MEDS ORDERED: BUPIVACAINE HCL 0.5% INJ 30 ML VIAL INJ ONE (13:59)
[2024-02-09] MEDS ORDERED: EPINEPHRINE HCL 1:1000 1ML 1 MG/ML AMP ONE (13:59)
[2024-02-09] MEDS ORDERED: KETAMINE 50MG/5ML SYR ONE (14:01)
[2024-02-09] MEDS ORDERED: ACETAMINOPHEN 1000 MG/100 ML IV ONE (14:12)
[2024-02-09] MEDS ORDERED: PROPOFOL IV EMULSION 10 MG/ML 20 ML VIAL ONE (14:12)
[2024-02-09] MEDS ORDERED: SEVOFLURANE INHAL SOLN 250 ML PEN BTL ONE (14:12)
[2024-02-09] MEDS ORDERED: DEXAMETHASONE SOD PHOS INJ 4 MG/ML SDV ONE (14:12)
[2024-02-09] MEDS ORDERED: LIDOCAINE HCL 2% LOCAL INJ 5 ML SDV VIAL INJ ONE (14:12)
[2024-02-09] MEDS ORDERED: ONDANSETRON HCL INJ 2MG/ML 2ML 2 MG/ML VIAL ONE (14:12)
[2024-02-09 16:55] VITALS: BP 126/60; PULSE 58; RESP 16; TEMP 97.3; O2SAT 100
[2024-02-09] MEDS ORDERED: MIDAZOLAM HCL 2 MG/2 ML VIAL ONE (18:17)
[2024-02-09 20:00] VITALS: BP 127/65; PULSE 59; RESP 18; TEMP 97.9; O2SAT 100
[2024-02-09 20:05] VITALS: BP 127/65; PULSE 59; RESP 18; TEMP 97.9; O2SAT 100
[2024-02-09] MEDS: SODIUM CHLORIDE 0.9% 1000ML 2,000 ML ONE (20:39)
[2024-02-10] VITALS (8 sets, daily range): BP systolic 103–131; BP diastolic 48–64; PULSE 58–73; RESP 17–18; TEMP 97.2–98.4; O2SAT 98–100
[2024-02-10 05:29] LABS: HEMATOCRIT 32.5 % (38.2-49.6); HEMOGLOBIN 10.1 g/dL (14.0-18.0); MEAN CORPUSCULAR HEMOGLOBIN 30.5 pg (28-32); MEAN CORPUSCULAR HGB CONC 31.1 g/dL (31-35); MEAN CORPUSCULAR VOLUME 98.2 fL (81-99); PLATELET COUNT 162 x10e3/uL (140-360); RED BLOOD COUNT 3.31 x10e6/uL (4.3-5.7); RED CELL DISTRIBUTION WIDTH 15.2 % (11.7-14.4); WHITE BLOOD COUNT 5.43 x10e3/uL (4.8-10.8)
[2024-02-10 06:00] LABS: ANION GAP 15.1 mmol/L (8-16); CALCIUM 9.5 mg/dL (8.4-10.2); CREATININE, SERUM 3.32 mg/dL (0.72-1.25); POTASSIUM 5.1 mmol/L (3.5-5.1)
[2024-02-10 10:03] LABS: LYMPHOCYTES % (MANUAL) 6 % (19-48); MONOCYTES % (MANUAL) 4 % (3.4-9.0); NEUTROPHILS % (MANUAL) 90 % (40-74)
[2024-02-10 10:04] LABS: PLATELET ESTIMATE ADEQUATE; PLATELET MORPHOLOGY COMMENT NORMAL; RBC MORPHOLOGY COMMENT NORMAL
[2024-02-10] MEDS: SODIUM CHLORIDE 0.9% 1000ML 2,000 ML IV PRN (11:09)
[2024-02-11] VITALS: BP 105/53; PULSE 60; RESP 18; TEMP 99.4; O2SAT 100
[2024-02-11 06:01] LABS: BASOPHILS % 0.3 % (0.0-1.0); EOSINOPHILS # (AUTO) 0.1 (0.0-0.4); EOSINOPHILS % 1.3 % (0.0-6.0); HEMOGLOBIN 9.7 g/dL (14.0-18.0); LYMPHOCYTES # (AUTO) 0.7 (1.0-3.2); LYMPHOCYTES % 9.2 % (18.0-39.1); MEAN CORPUSCULAR HEMOGLOBIN 30.7 pg (28-32); MEAN CORPUSCULAR HGB CONC 31.3 g/dL (31-35); MEAN CORPUSCULAR VOLUME 98.1 fL (81-99); MONOCYTES % 12.6 % (4.4-11.3); NEUTROPHILS # (AUTO) 5.8 (2.1-6.9); NEUTROPHILS % 76.2 % (38.7-80.0); PLATELET COUNT 154 x10e3/uL (140-360); RED BLOOD COUNT 3.16 x10e6/uL (4.3-5.7); RED CELL DISTRIBUTION WIDTH 15.7 % (11.7-14.4); WHITE BLOOD COUNT 7.64 x10e3/uL (4.8-10.8)
[2024-02-11 06:16] LABS: ANION GAP 43.2 mmol/L (8-16); CALCIUM 8.8 mg/dL (8.4-10.2); CREATININE, SERUM 2.78 mg/dL (0.72-1.25); POTASSIUM 4.2 mmol/L (3.5-5.1)
[2024-02-11 08:00] VITALS: BP 113/51; PULSE 60; RESP 18; TEMP 99.4; O2SAT 100
[2024-02-11 08:21] VITALS: BP 113/51; PULSE 62; RESP 18; TEMP 98.9; O2SAT 100
[2024-02-11 11:49] VITALS: BP 114/53; PULSE 62; RESP 18; TEMP 98; O2SAT 97
[2024-02-11 15:26] VITALS: BP 132/54; PULSE 58; RESP 18; TEMP 98.6; O2SAT 100
[2024-02-11 17:05] VITALS: BP 132/54; PULSE 58
[2024-02-11] MEDS ORDERED: ONDANSETRON HCL 4 MG ORAL DISINTEGRATING TAB PO PRN (18:15)
[2024-02-16] MEDS ORDERED: FLONASE ALLERG9.9 ML INH (10:59)
== END 2024-02-11 19:48 | disposition home health service (06) | DRG 239 ==
LOC: ER 11:42 → ERHOLD 12:09 → MED/SURG3 18:29
PROVIDERS: ADMIT Family Medicine; ATTEND Family Medicine
PROC: 0Y6H0Z1 Detachment at Right Lower Leg, High, Open Approach (ICD-10-PCS; principal; 2024-02-09 14:07)
DX: E11.52 Type 2 diabetes mellitus with diabetic peripheral angiopathy with gangrene (principal); I12.0 Hypertensive chronic kidney disease with stage 5 chronic kidney disease or end stage renal disease; E11.22 Type 2 diabetes mellitus with diabetic chronic kidney disease; N18.6 End stage renal disease; I70.263 Atherosclerosis of native arteries of extremities with gangrene, bilateral legs; E11.621 Type 2 diabetes mellitus with foot ulcer; L97.528 Non-pressure chronic ulcer of other part of left foot with other specified severity; L97.518 Non-pressure chronic ulcer of other part of right foot with other specified severity; L89.151 Pressure ulcer of sacral region, stage 1; L89.610 Pressure ulcer of right heel, unstageable; E11.42 Type 2 diabetes mellitus with diabetic polyneuropathy; Z99.2 Dependence on renal dialysis; I25.10 Atherosclerotic heart disease of native coronary artery without angina pectoris; J44.9 Chronic obstructive pulmonary disease, unspecified; M19.90 Unspecified osteoarthritis, unspecified site; E78.5 Hyperlipidemia, unspecified; I25.2 Old myocardial infarction; Z95.810 Presence of automatic (implantable) cardiac defibrillator; Z95.5 Presence of coronary angioplasty implant and graft; Z95.1 Presence of aortocoronary bypass graft; Z98.84 Bariatric surgery status; Z88.0 Allergy status to penicillin; Z88.1 Allergy status to other antibiotic agents; Z88.2 Allergy status to sulfonamides
CPT/HCPCS: 36415; 71046; 80048; 85007; 85025; 85027; 86706; 87040; 87350; 88304; 88307; 88311; 93005; 93306; 93925; 94799; 99252; 99284; J0171; J1100; J2001; J2250; J2270; J2405; J3370; J7030; J7050

== ENCOUNTER 2024-02-18 09:57 | Inpatient (IN) | payer MEDICARE, BC ==
[~2024-02-18] VITALS: Ht 193 cm; Wt 68.0 kg
[~2024-02-18 09:57] MED LIST changes: +ACETAMINOPHEN 1000 MG/100 ML 100 ML IV ONE; +ACIDOPHILUS1 EAC1 PO; +FLONASE ALLERG9.9 ML INH; +HYDROXYZINE HCL25 MG PO
[2024-02-18] MEDS ORDERED: SODIUM CHLORIDE 0.9% 500ML 500 ML ONE (10:10)
[2024-02-18 10:48] LABS: BASOPHILS % 0.5 % (0.0-1.0); EOSINOPHILS # (AUTO) 0.2 (0.0-0.4); EOSINOPHILS % 3.9 % (0.0-6.0); HEMATOCRIT 32.8 % (38.2-49.6); HEMOGLOBIN 10.2 g/dL (14.0-18.0); LYMPHOCYTES # (AUTO) 0.5 (1.0-3.2); LYMPHOCYTES % 12.5 % (18.0-39.1); MEAN CORPUSCULAR HEMOGLOBIN 30.4 pg (28-32); MEAN CORPUSCULAR HGB CONC 31.1 g/dL (31-35); MEAN CORPUSCULAR VOLUME 97.9 fL (81-99); MONOCYTES # (AUTO) 0.5 (0.2-0.8); NEUTROPHILS # (AUTO) 3.1 (2.1-6.9); NEUTROPHILS % 70.9 % (38.7-80.0); PLATELET COUNT 193 x10e3/uL (140-360); RED BLOOD COUNT 3.35 x10e6/uL (4.3-5.7); RED CELL DISTRIBUTION WIDTH 14.6 % (11.7-14.4); WHITE BLOOD COUNT 4.33 x10e3/uL (4.8-10.8)
[2024-02-18 10:53] LABS: INR 1.13; PROTHROMBIN TIME 15.1 seconds (11.9-14.5)
[2024-02-18 10:54] LABS: PARTIAL THROMBOPLASTIN TIME 39.8 seconds (23.8-35.5)
[2024-02-18 11:01] LABS: ANION GAP 11.1 mmol/L (8-16); CALCIUM 9.2 mg/dL (8.4-10.2); CREATININE, SERUM 2.2 mg/dL (0.72-1.25); POTASSIUM 4.1 mmol/L (3.5-5.1)
[2024-02-18] MEDS ORDERED: BUPIVACAINE LIPOSOME/PF 266 MG/20 ML IJ ONE (11:28)
[2024-02-18] MEDS ORDERED: EPINEPHRINE HCL 1:1000 1ML 1 MG/ML AMP ONE (11:51)
[2024-02-18] MEDS ORDERED: BUPIVACAINE 0.25% 30ML SDV ONE (12:05)
[2024-02-18] MEDS ORDERED: SEVOFLURANE INHAL SOLN 250 ML PEN BTL ONE (12:27)
[2024-02-18] MEDS ORDERED: DEXAMETHASONE SOD PHOS INJ 4 MG/ML SDV ONE (12:27)
[2024-02-18] MEDS ORDERED: PHENYLEPHRINE HCL 1% 10 MG/ML VIAL ONE (12:27)
[2024-02-18] MEDS ORDERED: LIDOCAINE HCL 2% LOCAL INJ 5 ML SDV VIAL INJ ONE (12:27)
[2024-02-18] MEDS ORDERED: PROPOFOL IV EMULSION 10 MG/ML 20 ML VIAL ONE (12:27)
[2024-02-18] MEDS ORDERED: HYDROCODONE/APAP 5MG-325MG TAB PO PRN (13:30)
[2024-02-18] MEDS ORDERED: ONDANSETRON HCL INJ 2MG/ML 2ML 2 MG/ML VIAL IV PRN (13:30)
[2024-02-18] MEDS ORDERED: FENTANYL CITRATE/PF 100MCG/2 ML INJ ONE (13:55)
[2024-02-18] MEDS ORDERED: MIDAZOLAM HCL 2 MG/2 ML VIAL ONE (13:55)
[2024-02-18 15:39] VITALS: BP 122/55; PULSE 60; RESP 19; TEMP 97.5; O2SAT 96
[2024-02-18 15:40] VITALS: BP 122/55; PULSE 60; RESP 19; TEMP 97.5; O2SAT 96
[2024-02-18 16:00] VITALS: BP 122/55; PULSE 60; RESP 19; TEMP 97.5; O2SAT 96
[2024-02-18] MEDS: DEXTROSE 5%/0.45% SOD CHL 1,000 ML IV SCH (16:00)
[2024-02-18] MEDS: HYDROMORPHONE 1MG/1ML INJ IV PRN (16:18)
[2024-02-18] MEDS: CARVEDILOL 3.125 MG TAB PO SCH (16:19)
[2024-02-18 20:00] VITALS: BP 126/55; PULSE 68; RESP 18; TEMP 98.2; O2SAT 98
[2024-02-18] MEDS: ATORVASTATIN 40 MG TAB PO SCH (20:35)
[2024-02-18 21:00] VITALS: BP 126/55; PULSE 68; RESP 18; TEMP 98.2; O2SAT 98
[2024-02-19] VITALS (7 sets, daily range): BP systolic 108–151; BP diastolic 55–88; PULSE 55–72; RESP 18–19; TEMP 97.6–98.2; O2SAT 97–100
[2024-02-19 06:07] LABS: BASOPHILS % 0.4 % (0.0-1.0); EOSINOPHILS # (AUTO) 0.2 (0.0-0.4); EOSINOPHILS % 3.1 % (0.0-6.0); HEMATOCRIT 32.2 % (38.2-49.6); HEMOGLOBIN 9.7 g/dL (14.0-18.0); LYMPHOCYTES # (AUTO) 0.5 (1.0-3.2); LYMPHOCYTES % 8.1 % (18.0-39.1); MEAN CORPUSCULAR HEMOGLOBIN 30.4 pg (28-32); MEAN CORPUSCULAR HGB CONC 30.1 g/dL (31-35); MEAN CORPUSCULAR VOLUME 100.9 fL (81-99); MONOCYTES # (AUTO) 0.6 (0.2-0.8); MONOCYTES % 10.6 % (4.4-11.3); NEUTROPHILS # (AUTO) 4.3 (2.1-6.9); NEUTROPHILS % 77.4 % (38.7-80.0); PLATELET COUNT 186 x10e3/uL (140-360); RED BLOOD COUNT 3.19 x10e6/uL (4.3-5.7); RED CELL DISTRIBUTION WIDTH 14.4 % (11.7-14.4); WHITE BLOOD COUNT 5.55 x10e3/uL (4.8-10.8)
[2024-02-19 06:34] LABS: ANION GAP 12.3 mmol/L (8-16); CALCIUM 9.1 mg/dL (8.4-10.2); CREATININE, SERUM 2.94 mg/dL (0.72-1.25); POTASSIUM 4.3 mmol/L (3.5-5.1)
[2024-02-19] MEDS ORDERED: SODIUM CHLORIDE 0.9% 1000ML 2,000 ML ONE (09:46)
[2024-02-19] MEDS ORDERED: SODIUM CHLORIDE 0.9% 1000ML 2,000 ML IV PRN (10:15)
[2024-02-19] MEDS ORDERED: ALBUMIN 25% 12.5GM 0.25 GM/ML BTL IV PRN ×2 (10:15)
[2024-02-19] MEDS: TAMSULOSIN HCL 0.4 MG CAP PO SCH (15:27)
[2024-02-19] MEDS: LACTOBACILLUS ACIDOPHILUS CAPSULE PO SCH (15:27)
[2024-02-19] MEDS: PANTOPRAZOLE SOD 40 MG TABEC PO SCH (15:27)
[2024-02-19] MEDS: HYDROCODONE/APAP 10MG-325MG TAB PO PRN (19:34)
[2024-02-19] MEDS: DOCUSATE SODIUM 100 MG CAP PO SCH (20:25)
[2024-02-20] VITALS (7 sets, daily range): BP systolic 112–142; BP diastolic 54–78; PULSE 59–80; RESP 16–20; TEMP 98–98.4; O2SAT 94–100
[2024-02-20 07:41] LABS: BASOPHILS % 0.4 % (0.0-1.0); EOSINOPHILS # (AUTO) 0.1 (0.0-0.4); EOSINOPHILS % 1.8 % (0.0-6.0); HEMATOCRIT 28.9 % (38.2-49.6); LYMPHOCYTES # (AUTO) 0.6 (1.0-3.2); LYMPHOCYTES % 8.7 % (18.0-39.1); MEAN CORPUSCULAR HEMOGLOBIN 30.8 pg (28-32); MEAN CORPUSCULAR HGB CONC 31.1 g/dL (31-35); MONOCYTES # (AUTO) 0.7 (0.2-0.8); MONOCYTES % 10.2 % (4.4-11.3); NEUTROPHILS # (AUTO) 5.6 (2.1-6.9); NEUTROPHILS % 78.6 % (38.7-80.0); PLATELET COUNT 178 x10e3/uL (140-360); RED BLOOD COUNT 2.92 x10e6/uL (4.3-5.7); RED CELL DISTRIBUTION WIDTH 14.6 % (11.7-14.4); WHITE BLOOD COUNT 7.16 x10e3/uL (4.8-10.8)
[2024-02-20 08:05] LABS: ALBUMIN 2.5 g/dL (3.5-5.0); ALBUMIN/GLOBULIN RATIO 0.7 (0.8-2.0); ANION GAP 9.9 mmol/L (8-16); BILIRUBIN,TOTAL 0.5 mg/dL (0.2-1.2); CREATININE, SERUM 2.26 mg/dL (0.72-1.25); MAGNESIUM 1.8 MG/DL (1.3-2.1); POTASSIUM 3.9 mmol/L (3.5-5.1); TOTAL PROTEIN 6.2 g/dL (6.5-8.1)
[2024-02-21] VITALS (8 sets, daily range): BP systolic 114–135; BP diastolic 56–71; PULSE 59–76; RESP 16–19; TEMP 97.5–98.1; O2SAT 95–100
[2024-02-21 06:49] LABS: HEPATITIS B CORE AB TOTAL Negative
[2024-02-21 06:50] LABS: HEPATITIS C ANTIBODY Non Reactive
[2024-02-21 06:52] LABS: HEPATITIS B SURFACE AG Negative
[2024-02-22 08:00] VITALS: BP 118/59; PULSE 61; RESP 17; TEMP 97.6; O2SAT 98
[2024-02-22 08:24] VITALS: BP 118/59; PULSE 61; RESP 17; TEMP 97.6; O2SAT 98
[2024-02-22 11:57] VITALS: BP 124/55; PULSE 98; RESP 18; TEMP 97.5; O2SAT 98
[2024-02-22 16:24] VITALS: BP 123/61; PULSE 59; RESP 16; TEMP 97.6; O2SAT 99
[2024-02-22] MEDS ORDERED: SODIUM CHLORIDE 0.9% 1000ML 2,000 ML IV PRN (18:30)
[2024-02-22 20:00] VITALS: BP 130/56; PULSE 59; RESP 18; TEMP 98; O2SAT 100
[2024-02-22 21:00] VITALS: BP 130/56; PULSE 59; RESP 18; TEMP 98; O2SAT 100
[2024-02-23] VITALS: BP 112/54; PULSE 60; RESP 18; TEMP 98.4; O2SAT 100
[2024-02-23 04:00] VITALS: BP 138/60; PULSE 60; RESP 18; TEMP 97.7; O2SAT 100
[2024-02-23 10:17] VITALS: BP 129/69; PULSE 63; RESP 17; TEMP 98; O2SAT 98
[2024-02-23 13:35] VITALS: BP 125/67; PULSE 65; RESP 16; TEMP 98.2; O2SAT 95
[2024-02-23 16:21] VITALS: BP 123/63; PULSE 58; RESP 18; TEMP 98.2; O2SAT 97
[2024-02-23 16:37] VITALS: BP 123/63; PULSE 58
== END 2024-02-23 17:53 | DRG 239 ==
LOC: OR 09:57 → PACU V 13:33 → MED/SURG3 15:20
PROVIDERS: ADMIT Surgery; ATTEND Surgery
PROC: 0Y6J0Z1 Detachment at Left Lower Leg, High, Open Approach (ICD-10-PCS; principal; 2024-02-18 12:29)
PROC: 5A1D70Z Performance of Urinary Filtration, Intermittent, Less than 6 Hours Per Day (ICD-10-PCS; 2024-02-19)
DX: I96 Gangrene, not elsewhere classified (principal); I12.0 Hypertensive chronic kidney disease with stage 5 chronic kidney disease or end stage renal disease; E11.22 Type 2 diabetes mellitus with diabetic chronic kidney disease; N18.6 End stage renal disease; J44.9 Chronic obstructive pulmonary disease, unspecified; I25.10 Atherosclerotic heart disease of native coronary artery without angina pectoris; N40.0 Benign prostatic hyperplasia without lower urinary tract symptoms; E78.5 Hyperlipidemia, unspecified; K21.9 Gastro-esophageal reflux disease without esophagitis; M19.90 Unspecified osteoarthritis, unspecified site; Z89.511 Acquired absence of right leg below knee; Z95.810 Presence of automatic (implantable) cardiac defibrillator; Z74.01 Bed confinement status; Z88.0 Allergy status to penicillin; Z88.2 Allergy status to sulfonamides
CPT/HCPCS: 36415; 80048; 80053; 83735; 85025; 85610; 85730; 86704; 86706; 86707; 86803; 87340; 87350; 88304; 88307; 88311; 99252; J0171; J0690; J1100; J1170; J1171; J2001; J2250; J2371; J7030; J7040

== ENCOUNTER 2024-03-15 20:38 | Inpatient (IN) | payer MEDICARE, BC ==
[~2024-03-15] VITALS: Ht 180.3 cm; Wt 80.7 kg
[~2024-03-15 20:38] MED LIST changes: -ACETAMINOPHEN 1000 MG/100 ML 100 ML IV ONE
[2024-03-15 20:51] VITALS: TEMP 98.3
[2024-03-15 21:00] VITALS: BP 111/46; PULSE 60; RESP 18; TEMP 97.3; O2SAT 100
[2024-03-15 21:13] LABS: BASOPHILS % 0.6 % (0.0-1.0); EOSINOPHILS # (AUTO) 0.3 (0.0-0.4); EOSINOPHILS % 5.5 % (0.0-6.0); HEMATOCRIT 30.1 % (38.2-49.6); HEMOGLOBIN 9.5 g/dL (14.0-18.0); LYMPHOCYTES # (AUTO) 0.6 (1.0-3.2); LYMPHOCYTES % 12.7 % (18.0-39.1); MEAN CORPUSCULAR HGB CONC 31.6 g/dL (31-35); MONOCYTES # (AUTO) 0.5 (0.2-0.8); MONOCYTES % 10.4 % (4.4-11.3); NEUTROPHILS # (AUTO) 3.3 (2.1-6.9); NEUTROPHILS % 70.6 % (38.7-80.0); PLATELET COUNT 222 x10e3/uL (140-360); RED BLOOD COUNT 3.17 x10e6/uL (4.3-5.7); RED CELL DISTRIBUTION WIDTH 14.8 % (11.7-14.4); WHITE BLOOD COUNT 4.73 x10e3/uL (4.8-10.8)
[2024-03-15 21:25] LABS: BILIRUBIN,URINE SMALL (NEGATIVE); CLARITY,URINE CLOUDY (CLEAR); COLOR,URINE BROWN (YELLOW); GLUCOSE, URINE NEGATIVE (NEGATIVE); KETONES,URINE NEGATIVE (NEGATIVE); LEUKOCYTE ESTERASE ,URINE SMALL (NEGATIVE); NITRITE,URINE POSITIVE (NEGATIVE); PH,URINE 7 (5 - 7); PROTEIN,URINE DIPSTICK >=300 (NEGATIVE); URINE UROBILINOGEN 0.2 mg/dL (0.2 - 1)
[2024-03-15 21:31] LABS: ALBUMIN 2.8 g/dL (3.5-5.0); ALBUMIN/GLOBULIN RATIO 0.8 (0.8-2.0); ANION GAP 11.6 mmol/L (8-16); BILIRUBIN,TOTAL 0.4 mg/dL (0.2-1.2); CALCIUM 9.9 mg/dL (8.4-10.2); CREATININE, SERUM 3.51 mg/dL (0.72-1.25); POTASSIUM 3.6 mmol/L (3.5-5.1); TOTAL PROTEIN 6.5 g/dL (6.5-8.1)
[2024-03-15 21:38] LABS: TROPONIN I 0.012 ng/mL (0-0.300)
[2024-03-15 21:39] LABS: BACTERIA,URINE MANY /HPF; EPITHELIAL CELLS,URINE FEW /LPF; WBC,URINE (MAN) >50 /HPF (0-5)
[2024-03-15 22:00] VITALS: PULSE 67; RESP 21
[2024-03-15] MEDS ORDERED: LEVOFLOXACIN 750MG/D5W 150ML 150 ML IV SCH (22:00)
[2024-03-15] MEDS ORDERED: SODIUM CHLORIDE FLUSH 10 ML SYR INJ PRN (22:00)
[2024-03-15 22:23] VITALS: BP 111/46; PULSE 60; RESP 18; TEMP 97.3; O2SAT 96
[2024-03-15] MEDS: LEVOFLOXACIN 750MG/D5W 150ML 150 ML IV ONE (22:58)
[2024-03-15] MEDS: FUROSEMIDE INJ 10 MG/ML 4 ML VIAL IV SCH (22:58)
[2024-03-15 23:30] VITALS: BP 111/46; PULSE 60; RESP 18; TEMP 97.3; O2SAT 96
[2024-03-16] VITALS (8 sets, daily range): BP systolic 98–113; BP diastolic 43–56; PULSE 53–74; RESP 18–20; TEMP 97.5–98.6; O2SAT 94–99
[2024-03-16 05:44] LABS: BASOPHILS % 0.2 % (0.0-1.0); EOSINOPHILS # (AUTO) 0.3 (0.0-0.4); EOSINOPHILS % 5.7 % (0.0-6.0); HEMATOCRIT 27.9 % (38.2-49.6); HEMOGLOBIN 8.5 g/dL (14.0-18.0); LYMPHOCYTES # (AUTO) 0.7 (1.0-3.2); MEAN CORPUSCULAR HEMOGLOBIN 29.3 pg (28-32); MEAN CORPUSCULAR HGB CONC 30.5 g/dL (31-35); MEAN CORPUSCULAR VOLUME 96.2 fL (81-99); MONOCYTES # (AUTO) 0.6 (0.2-0.8); NEUTROPHILS # (AUTO) 3.9 (2.1-6.9); NEUTROPHILS % 70.7 % (38.7-80.0); PLATELET COUNT 206 x10e3/uL (140-360); RED CELL DISTRIBUTION WIDTH 15.1 % (11.7-14.4); WHITE BLOOD COUNT 5.48 x10e3/uL (4.8-10.8)
[2024-03-16 06:17] LABS: ALBUMIN 2.5 g/dL (3.5-5.0); ALBUMIN/GLOBULIN RATIO 0.7 (0.8-2.0); ANION GAP 12.4 mmol/L (8-16); BILIRUBIN,TOTAL 0.4 mg/dL (0.2-1.2); CALCIUM 9.5 mg/dL (8.4-10.2); CREATININE, SERUM 3.54 mg/dL (0.72-1.25); TOTAL PROTEIN 5.9 g/dL (6.5-8.1)
[2024-03-16 06:18] LABS: POTASSIUM 3.4 mmol/L (3.5-5.1)
[2024-03-16 07:15] LABS: TROPONIN I 0.02 ng/mL (0-0.300)
[2024-03-16] MEDS: Morphine 4mg INJECTION 4 MG/ML INJ IV PRN (09:28)
[2024-03-16] MEDS: ONDANSETRON HCL INJ 2MG/ML 2ML 2 MG/ML VIAL IV PRN (09:28)
[2024-03-16] MEDS ORDERED: ALBUMIN 25% 12.5GM 0.25 GM/ML BTL IV PRN (11:30)
[2024-03-16] MEDS ORDERED: SODIUM CHLORIDE 0.9% 1000ML 2,000 ML IV PRN (11:30)
[2024-03-16] MEDS ORDERED: SODIUM CHLORIDE 0.9% 250ML 500 ML IV PRN (11:30)
[2024-03-16] MEDS: IRON SUCROSE 100 MG in SODIUM CHLORIDE 0.9% 100 ML IV SCH (11:42)
[2024-03-16] MEDS: SEVELAMER CARBONATE 800 MG TAB PO SCH (11:43)
[2024-03-16 14:06] LABS: TROPONIN I 0.009 ng/mL (0-0.300)
[2024-03-16] MEDS: FLUTICASONE PROPIONATE NASAL SPRAY NS SCH (17:00)
[2024-03-16] MEDS: CARVEDILOL 3.125 MG TAB PO SCH (17:00)
[2024-03-16] MEDS: MIDODRINE HCL 5 MG TABLET PO SCH (17:21)
[2024-03-16] MEDS: EPOETIN ALFA-EPBX 10,000 UNIT/ML VIAL SC SCH (17:32)
[2024-03-16] MEDS: ATORVASTATIN 40 MG TAB PO SCH (21:04)
[2024-03-16] MEDS: LEVOFLOXACIN 250MG/D5W 50ML 50 ML IV SCH (21:04)
[2024-03-16] MEDS ORDERED: IOPAMIDOL 370 MG/ML 100 ML INFUS..BTL INJ ONE (22:53)
[2024-03-17 08:15] LABS: HEPATITIS B CORE AB TOTAL Negative; HEPATITIS B SURFACE AG (P) Negative
[2024-03-17 08:32] VITALS: BP 105/46; PULSE 60; RESP 18; TEMP 98.4; O2SAT 99
[2024-03-17 08:48] VITALS: BP 105/50; PULSE 61; RESP 17; TEMP 97.6; O2SAT 97
[2024-03-17] MEDS: PANTOPRAZOLE SOD 40 MG TABEC PO SCH (09:34)
[2024-03-17] MEDS: TAMSULOSIN HCL 0.4 MG CAP PO SCH (09:36)
[2024-03-17] MEDS: LACTOBACILLUS ACIDOPHILUS CAPSULE PO SCH (09:36)
[2024-03-17] MEDS: DICYCLOMINE HCL 20 MG TAB PO SCH (13:21)
[2024-03-17] MEDS: CHOLESTYRAMINE 4 GM PACKET PO SCH (13:21)
[2024-03-17 13:23] VITALS: BP 99/53; PULSE 61; RESP 18; TEMP 97.7; O2SAT 97
[2024-03-17 16:51] VITALS: BP 111/48; PULSE 69; RESP 18; TEMP 98.2; O2SAT 97
[2024-03-17 20:00] VITALS: BP 114/56; PULSE 59; RESP 18; TEMP 97.5; O2SAT 99
[2024-03-17] MEDS: FLUCONAZOLE 100 MG/NS 50 ML 50 ML IV SCH (20:44)
[2024-03-17 23:01] VITALS: BP 114/56; PULSE 59; RESP 18; TEMP 97.5; O2SAT 99
[2024-03-18] VITALS (8 sets, daily range): BP systolic 104–122; BP diastolic 48–59; PULSE 60–116; RESP 16–20; TEMP 97.5–98.2; O2SAT 94–97
[2024-03-18 06:11] LABS: BASOPHILS % 0.7 % (0.0-1.0); EOSINOPHILS # (AUTO) 0.3 (0.0-0.4); EOSINOPHILS % 6.9 % (0.0-6.0); HEMATOCRIT 29.6 % (38.2-49.6); HEMOGLOBIN 9.1 g/dL (14.0-18.0); LYMPHOCYTES # (AUTO) 0.9 (1.0-3.2); LYMPHOCYTES % 19.3 % (18.0-39.1); MEAN CORPUSCULAR HEMOGLOBIN 30.1 pg (28-32); MEAN CORPUSCULAR HGB CONC 30.7 g/dL (31-35); MONOCYTES # (AUTO) 0.7 (0.2-0.8); MONOCYTES % 14.4 % (4.4-11.3); NEUTROPHILS # (AUTO) 2.6 (2.1-6.9); NEUTROPHILS % 58.3 % (38.7-80.0); PLATELET COUNT 196 x10e3/uL (140-360); RED BLOOD COUNT 3.02 x10e6/uL (4.3-5.7); RED CELL DISTRIBUTION WIDTH 15.5 % (11.7-14.4)
[2024-03-18 06:41] LABS: ANION GAP 13.2 mmol/L (8-16); CALCIUM 9.2 mg/dL (8.4-10.2); CREATININE, SERUM 3.59 mg/dL (0.72-1.25); POTASSIUM 4.2 mmol/L (3.5-5.1)
[2024-03-18] MEDS ORDERED: FLUCONAZOLE 100 MG/NS 50 ML 50 ML IV SCH (16:30)
[2024-03-18] MEDS: FLUCONAZOLE 200 MG/100 ML 50 ML IV SCH (22:34)
[2024-03-19] VITALS: BP 97/56; PULSE 55; RESP 16; TEMP 98.1; O2SAT 100
[2024-03-19] MEDS: DICYCLOMINE HCL 20 MG TAB ONE (04:02)
[2024-03-19 05:53] LABS: ANION GAP 11.8 mmol/L (8-16); CREATININE, SERUM 2.78 mg/dL (0.72-1.25); POTASSIUM 3.8 mmol/L (3.5-5.1)
[2024-03-19 06:42] VITALS: BP 109/48; PULSE 65; RESP 16; TEMP 98.1; O2SAT 92
[2024-03-19 08:00] VITALS: BP 109/44; PULSE 60; RESP 19; TEMP 98.2; O2SAT 97
[2024-03-19] MEDS: NYSTATIN 15 GM POWDER UD BTL TOP PRN (08:53)
[2024-03-19 12:00] VITALS: BP 115/53; PULSE 63; RESP 19; TEMP 97.9; O2SAT 98
[2024-03-19] MEDS: FLUCONAZOLE 100 MG/NS 50 ML 50 ML IV SCH (14:12)
[2024-03-19 16:00] VITALS: BP 104/48; PULSE 60; RESP 19; TEMP 98.1; O2SAT 97
[2024-03-19 20:00] VITALS: BP 118/48; PULSE 60; RESP 20; TEMP 98.1; O2SAT 100
[2024-03-20] VITALS (7 sets, daily range): BP systolic 105–117; BP diastolic 45–56; PULSE 57–61; RESP 16–18; TEMP 97.6–98.6; O2SAT 95–97
[2024-03-20] MEDS: FLUCONAZOLE 100 MG TAB PO SCH (14:39)
[2024-03-21] VITALS (8 sets, daily range): BP systolic 108–136; BP diastolic 53–57; PULSE 58–72; RESP 17–18; TEMP 97.7–98.7; O2SAT 96–99
[2024-03-21] MEDS: PANTOPRAZOLE SOD 40 MG TABEC PO SCH (10:21)
[2024-03-22] VITALS: BP 125/63; PULSE 70; RESP 18; TEMP 97.9; O2SAT 98
[2024-03-22 06:50] LABS: BASOPHILS % 0.2 % (0.0-1.0); EOSINOPHILS # (AUTO) 0.3 (0.0-0.4); EOSINOPHILS % 5.8 % (0.0-6.0); HEMATOCRIT 31.4 % (38.2-49.6); HEMOGLOBIN 9.5 g/dL (14.0-18.0); LYMPHOCYTES # (AUTO) 0.6 (1.0-3.2); LYMPHOCYTES % 11.2 % (18.0-39.1); MEAN CORPUSCULAR HEMOGLOBIN 29.4 pg (28-32); MEAN CORPUSCULAR HGB CONC 30.3 g/dL (31-35); MEAN CORPUSCULAR VOLUME 97.2 fL (81-99); MONOCYTES # (AUTO) 0.6 (0.2-0.8); MONOCYTES % 11.4 % (4.4-11.3); PLATELET COUNT 162 x10e3/uL (140-360); RED BLOOD COUNT 3.23 x10e6/uL (4.3-5.7); RED CELL DISTRIBUTION WIDTH 15.8 % (11.7-14.4); WHITE BLOOD COUNT 5.55 x10e3/uL (4.8-10.8)
[2024-03-22 07:24] LABS: ALBUMIN 2.6 g/dL (3.5-5.0); ALBUMIN/GLOBULIN RATIO 0.7 (0.8-2.0); ANION GAP 14.7 mmol/L (8-16); BILIRUBIN,TOTAL 0.5 mg/dL (0.2-1.2); CREATININE, SERUM 3.16 mg/dL (0.72-1.25); POTASSIUM 3.7 mmol/L (3.5-5.1); TOTAL PROTEIN 6.4 g/dL (6.5-8.1)
[2024-03-22 08:38] VITALS: BP 101/43; PULSE 58; RESP 19; TEMP 98.2; O2SAT 98
[2024-03-22 08:54] VITALS: BP 101/43; PULSE 58; RESP 19; TEMP 98.2; O2SAT 98
[2024-03-22 15:45] VITALS: BP 117/51; PULSE 59; RESP 19; TEMP 98.3; O2SAT 96
[2024-03-22 20:00] VITALS: BP 106/51; PULSE 63; RESP 16; TEMP 98.2; O2SAT 96
[2024-03-22 21:00] VITALS: BP 106/51; PULSE 63; RESP 16; TEMP 98.2; O2SAT 96
[2024-03-23] VITALS (7 sets, daily range): BP systolic 108–120; BP diastolic 45–84; PULSE 53–61; RESP 17–18; TEMP 97.3–98.9; O2SAT 93–100
[2024-03-23] MEDS ORDERED: FLUCONAZOLE 100 MG/NS 50 ML 50 ML IV ONE (10:15)
[2024-03-23] MEDS ORDERED: BUMETANIDE INJ 0.25MG/ML 4ML VIAL IV ONE (10:45)
[2024-03-23] MEDS: GABAPENTIN 300 MG CAP PO SCH (14:21)
[2024-03-23] MEDS: BUMETANIDE INJ 0.25MG/ML 4ML VIAL IV ONE (14:27)
[2024-03-24 09:28] VITALS: BP 119/53; PULSE 60; RESP 19; TEMP 97.8; O2SAT 97
[2024-03-24 12:22] VITALS: BP 128/55; PULSE 58; RESP 19; TEMP 98.1; O2SAT 100
[2024-03-24 16:47] VITALS: BP 118/48; PULSE 111; RESP 18; TEMP 97.5; O2SAT 98
[2024-03-24 20:00] VITALS: BP 124/55; PULSE 60; RESP 18; TEMP 98.1; O2SAT 98
[2024-03-24 21:00] VITALS: BP 124/55; PULSE 60; RESP 18; TEMP 98.1; O2SAT 98
[2024-03-25] VITALS (7 sets, daily range): BP systolic 97–121; BP diastolic 49–56; PULSE 54–72; RESP 18–20; TEMP 97.3–98.8; O2SAT 98–100
[2024-03-25] MEDS ORDERED: SODIUM CHLORIDE 0.9% 1000ML 2,000 ML IV PRN (14:15)
[2024-03-25] MEDS ORDERED: ALBUMIN 25% 12.5GM 0.25 GM/ML BTL IV PRN (14:15)
== END 2024-03-25 20:30 | disposition home health service (06) | DRG 291 ==
LOC: ER 20:44 → ERHOLD 21:57 → MED/SURG2 22:22
PROVIDERS: ADMIT Family Medicine; ATTEND Family Medicine
PROC: 30233N1 Transfusion of Nonautologous Red Blood Cells into Peripheral Vein, Percutaneous Approach (ICD-10-PCS; principal; 2024-03-16)
DX: I13.2 Hypertensive heart and chronic kidney disease with heart failure and with stage 5 chronic kidney disease, or end stage renal disease (principal); N18.6 End stage renal disease; B37.49 Other urogenital candidiasis; I50.9 Heart failure, unspecified; L89.152 Pressure ulcer of sacral region, stage 2; L89.326 Pressure-induced deep tissue damage of left buttock; E88.09 Other disorders of plasma-protein metabolism, not elsewhere classified; Z99.2 Dependence on renal dialysis; Z95.1 Presence of aortocoronary bypass graft; E11.22 Type 2 diabetes mellitus with diabetic chronic kidney disease; K21.9 Gastro-esophageal reflux disease without esophagitis; E87.70 Fluid overload, unspecified; J44.9 Chronic obstructive pulmonary disease, unspecified; K58.9 Irritable bowel syndrome, unspecified; I25.10 Atherosclerotic heart disease of native coronary artery without angina pectoris; E78.5 Hyperlipidemia, unspecified; M19.90 Unspecified osteoarthritis, unspecified site; N40.0 Benign prostatic hyperplasia without lower urinary tract symptoms; R30.0 Dysuria; Z11.52 Encounter for screening for COVID-19; Z79.51 Long term (current) use of inhaled steroids; Z95.810 Presence of automatic (implantable) cardiac defibrillator; I25.2 Old myocardial infarction; Z86.73 Personal history of transient ischemic attack (TIA), and cerebral infarction without residual deficits; Z95.5 Presence of coronary angioplasty implant and graft; Z89.511 Acquired absence of right leg below knee; Z89.512 Acquired absence of left leg below knee; Z88.0 Allergy status to penicillin; Z88.2 Allergy status to sulfonamides; Z88.1 Allergy status to other antibiotic agents
CPT/HCPCS: 36415; 51700; 71045; 73206; 80048; 80053; 81001; 82550; 82948; 83690; 83880; 84484; 85025; 86704; 86706; 87086; 87340; 93005; 94799; 99252; 99284; J1450; J1756; J1940; J1956; J2270; J2405; J7030; J7050; Q9967; U0002

== ENCOUNTER 2024-04-08 19:41 | Observation (INO) | payer MEDICARE, BC ==
[~2024-04-08] VITALS: Ht 180.3 cm; Wt 74.8 kg
[2024-04-08 19:42] VITALS: TEMP 98.5
[2024-04-08 20:16] LABS: BASOPHILS # (AUTO) 0.1 (0.0-0.1); BASOPHILS % 0.9 % (0.0-1.0); EOSINOPHILS # (AUTO) 0.3 (0.0-0.4); HEMATOCRIT 38.7 % (38.2-49.6); HEMOGLOBIN 12.2 g/dL (14.0-18.0); LYMPHOCYTES # (AUTO) 0.6 (1.0-3.2); LYMPHOCYTES % 10.9 % (18.0-39.1); MEAN CORPUSCULAR HEMOGLOBIN 28.8 pg (28-32); MEAN CORPUSCULAR HGB CONC 31.5 g/dL (31-35); MEAN CORPUSCULAR VOLUME 91.3 fL (81-99); MONOCYTES # (AUTO) 0.5 (0.2-0.8); MONOCYTES % 9.4 % (4.4-11.3); NEUTROPHILS # (AUTO) 3.9 (2.1-6.9); NEUTROPHILS % 72.6 % (38.7-80.0); PLATELET COUNT 123 x10e3/uL (140-360); RED BLOOD COUNT 4.24 x10e6/uL (4.3-5.7); RED CELL DISTRIBUTION WIDTH 15.7 % (11.7-14.4); WHITE BLOOD COUNT 5.34 x10e3/uL (4.8-10.8)
[2024-04-08 20:28] LABS: INR 1.16; PROTHROMBIN TIME 15.5 seconds (11.9-14.5)
[2024-04-08 20:29] LABS: PARTIAL THROMBOPLASTIN TIME 31.8 seconds (23.8-35.5)
[2024-04-08 20:35] LABS: ALBUMIN 2.9 g/dL (3.5-5.0); ALBUMIN/GLOBULIN RATIO 0.7 (0.8-2.0); ANION GAP 15.2 mmol/L (8-16); BILIRUBIN,TOTAL 0.7 mg/dL (0.2-1.2); CALCIUM 8.8 mg/dL (8.4-10.2); CREATININE, SERUM 1.99 mg/dL (0.72-1.25); TOTAL PROTEIN 6.8 g/dL (6.5-8.1)
[2024-04-08 20:45] VITALS: PULSE 66; RESP 17
[2024-04-08 20:45] LABS: POTASSIUM 3.2 mmol/L (3.5-5.1)
[2024-04-08] MEDS ORDERED: SODIUM CHLORIDE 0.9% 100 ML ONE (21:53)
[2024-04-08] MEDS ORDERED: IOPAMIDOL 370 MG/ML 100 ML INFUS..BTL INJ ONE (21:54)
[2024-04-08] MEDS: FLUCONAZOLE 100 MG/NS 50 ML 50 ML IV SCH (23:00)
[2024-04-08] MEDS ORDERED: SODIUM CHLORIDE FLUSH 10 ML SYR INJ PRN (23:00)
[2024-04-08] MEDS ORDERED: DEXTROSE 50% SYRINGE 50 ML IV PRN (23:00)
[2024-04-09] MEDS: HYDROCODONE/APAP 10MG-325MG TAB PO ONE (01:12)
[2024-04-09 02:00] VITALS: BP 119/50; PULSE 62; RESP 18; TEMP 98.7
[2024-04-09 04:00] VITALS: BP 108/51; PULSE 60; RESP 18; TEMP 98.3; O2SAT 100
[2024-04-09] MEDS: INSULIN REGULAR, HUMAN 100 UNIT/1 ML SQ SCH (07:30)
[2024-04-09 07:54] LABS: BASOPHILS # (AUTO) 0.1 (0.0-0.1); BASOPHILS % 1.1 % (0.0-1.0); EOSINOPHILS # (AUTO) 0.4 (0.0-0.4); EOSINOPHILS % 8.4 % (0.0-6.0); HEMATOCRIT 36.2 % (38.2-49.6); HEMOGLOBIN 11.2 g/dL (14.0-18.0); LYMPHOCYTES # (AUTO) 0.7 (1.0-3.2); MEAN CORPUSCULAR HEMOGLOBIN 28.4 pg (28-32); MEAN CORPUSCULAR HGB CONC 30.9 g/dL (31-35); MEAN CORPUSCULAR VOLUME 91.9 fL (81-99); MONOCYTES # (AUTO) 0.5 (0.2-0.8); MONOCYTES % 11.2 % (4.4-11.3); NEUTROPHILS % 65.1 % (38.7-80.0); PLATELET COUNT 125 x10e3/uL (140-360); RED BLOOD COUNT 3.94 x10e6/uL (4.3-5.7); RED CELL DISTRIBUTION WIDTH 15.9 % (11.7-14.4); WHITE BLOOD COUNT 4.65 x10e3/uL (4.8-10.8)
[2024-04-09 07:59] VITALS: BP 97/40; PULSE 68; RESP 20; TEMP 97.8; O2SAT 98
[2024-04-09 08:04] LABS: ALBUMIN 2.6 g/dL (3.5-5.0); ALBUMIN/GLOBULIN RATIO 0.9 (0.8-2.0); ANION GAP 13.7 mmol/L (8-16); BILIRUBIN,TOTAL 0.6 mg/dL (0.2-1.2); CALCIUM 8.4 mg/dL (8.4-10.2); CREATININE, SERUM 2.33 mg/dL (0.72-1.25); TOTAL PROTEIN 5.4 g/dL (6.5-8.1)
[2024-04-09 08:07] LABS: POTASSIUM 2.7 mmol/L (3.5-5.1)
[2024-04-09] MEDS: HYDROCODONE/APAP 10MG-325MG TAB PO PRN (09:32)
[2024-04-09 09:48] VITALS: BP 97/40; PULSE 68; RESP 20; TEMP 97.8; O2SAT 98
[2024-04-09] MEDS: POTASSIUM CHLORIDE 20 MEQ TAB CR PO STA (10:35)
[2024-04-09 11:36] VITALS: BP 118/52; PULSE 59; RESP 21; TEMP 97.7; O2SAT 100
[2024-04-09] MEDS ORDERED: CARVEDILOL 3.125 MG TAB PO SCH (17:00)
[2024-04-09] MEDS ORDERED: ATORVASTATIN 40 MG TAB PO SCH (21:00)
[2024-04-10] MEDS ORDERED: LACTOBACILLUS ACIDOPHILUS CAPSULE PO SCH (09:00)
[2024-04-10] MEDS ORDERED: PANTOPRAZOLE SOD 40 MG TABEC PO SCH (09:00)
[2024-04-10] MEDS ORDERED: TAMSULOSIN HCL 0.4 MG CAP PO SCH (09:00)
== END 2024-04-09 13:39 | disposition home or self-care (01) ==
LOC: ER 19:45 → ERHOLD 22:56 → MED/SURG 04-09 01:31
PROVIDERS: ADMIT Family Medicine; ATTEND Family Medicine
DX: R19.7 Diarrhea, unspecified (principal); K92.1 Melena; B37.49 Other urogenital candidiasis; R82.81 Pyuria; I13.2 Hypertensive heart and chronic kidney disease with heart failure and with stage 5 chronic kidney disease, or end stage renal disease; I50.9 Heart failure, unspecified; E11.22 Type 2 diabetes mellitus with diabetic chronic kidney disease; N18.6 End stage renal disease; E11.51 Type 2 diabetes mellitus with diabetic peripheral angiopathy without gangrene; Z99.2 Dependence on renal dialysis; I25.10 Atherosclerotic heart disease of native coronary artery without angina pectoris; I25.2 Old myocardial infarction; Z95.1 Presence of aortocoronary bypass graft; Z95.0 Presence of cardiac pacemaker; M19.91 Primary osteoarthritis, unspecified site; N52.9 Male erectile dysfunction, unspecified; Z96.0 Presence of urogenital implants; Z98.1 Arthrodesis status; Z89.512 Acquired absence of left leg below knee; Z89.511 Acquired absence of right leg below knee
CPT/HCPCS: 36415 ×2; 74174; 80053 ×2; 82948; 85025 ×2; 85610; 85730; 86850; 86900; 99284; G0378 ×2; J1450 ×2; J2470 ×2; J7050; Q9967